=== PATIENT | female | born 1955 | race Caucasian/White ===

== ENCOUNTER 2017-12-19 09:00 | Inpatient (IN) | payer MEDICARE ==
[~2017-12-19] VITALS: Ht 167.6 cm; Wt 113.1 kg
[2017-12-19 10:07] VITALS: BP 119/50
[2017-12-19 10:29] LABS: BASOPHILS % (AUTO) 1.1 % (0.0-5.0); EOSINOPHILS % (AUTO) 2.4 % (0.0-8.0); HEMATOCRIT 39.5 % (36-48); LYMPHOCYTES % (AUTO) 19.5 % (21.0-51.0); MEAN CORPUSCULAR HEMOGLOBIN 29.8 pg (27.0-33.0); MEAN CORPUSCULAR HGB CONC 32.5 g/dL (32.0-36.0); MEAN CORPUSCULAR VOLUME 91.8 fL (79-99); MONOCYTES % (AUTO) 6.6 % (3.0-13.0); NEUTROPHILS % (AUTO) 70.4 % (40.0-77.0); NUCLEATED RED BLOOD CELLS 0.1 % (0.0-0.19); PLATELET COUNT (AUTO) 216 K/uL (130-400); RED BLOOD CELL COUNT(AUTO) 4.31 MIL/uL (4.00-5.50); RED CELL DISTRIBUTION WIDTH 16.2 % (11.0-15.5)
[2017-12-19 10:40] LABS: CREATININE 4.5 mg/dL (0.5-1.5); POTASSIUM 4.9 mmol/L (3.5-5.1)
[2017-12-19 10:54] LABS: PARTIAL THROMBOPLASTIN TIME 26.7 SEC (26.3-35.5); PROTHROMBIN TIME 10.5 SEC (9.6-11.6)
[2017-12-19] MEDS ORDERED: ASPI-1181 PO (10:56)
[2017-12-19] MEDS ORDERED: INSU100I3 SQ (10:56)
[2017-12-19] MEDS ORDERED: INSU100V12 SQ (10:56)
[2017-12-19] MEDS ORDERED: LISI-613 PO (10:56)
[2017-12-19] MEDS ORDERED: BRINOS OD (10:56)
[2017-12-19] MEDS ORDERED: LEVO150T11 PO (10:56)
[2017-12-19] MEDS ORDERED: SEVE800T7 PO (10:56)
[2017-12-19] MEDS ORDERED: CARV25TA PO (10:56)
[2017-12-19] MEDS ORDERED: LEVO175T9 PO (10:56)
[2017-12-19] MEDS ORDERED: CALC-1093 PO (10:56)
[2017-12-19] MEDS ORDERED: BRIM155OS OD (10:56)
[2017-12-19] MEDS ORDERED: TRAV2.5D OD (10:56)
[2017-12-19] MEDS ORDERED: FOLI1TAB61 PO (10:56)
[2017-12-21] VITALS (11 sets, daily range): BP systolic 103–157; BP diastolic 33–64
[2017-12-21] MEDS ORDERED: SODIUM CHLORIDE 0.9% 1000ML 1,000 ML IV ONE (06:23)
[2017-12-21] MEDS ORDERED: NITROGLYCERIN 5 MG/ML 10 ML VIAL IV ONE (08:51)
[2017-12-21] MEDS ORDERED: HEPARIN SODIUM 1000UNIT/ML 10ML VIAL ONE (08:51)
[2017-12-21] MEDS ORDERED: BIVALIRUDIN 250 MG/VIAL IV ONE (08:51)
[2017-12-21] MEDS ORDERED: IOPAMIDOL-370 100 ML VIAL IV ONE ×2 (08:52→09:42)
[2017-12-21] MEDS ORDERED: ISOVUE-370 50ML VIAL IV ONE (08:52)
[2017-12-21] MEDS ORDERED: LIDOCAINE HCL 2% 20ML ONE (08:52)
[2017-12-21] MEDS ORDERED: MIDAZOLAM HCL 1 MG/ML 2ML VIAL ONE (09:13)
[2017-12-21] MEDS ORDERED: FENTANYL CITRATE PF 50 MCG/1 ML 2ML VIAL ONE (09:13)
[2017-12-21] MEDS ORDERED: GLUCAGON 1MG KIT 1 MG ML IM PRN (10:30)
[2017-12-21] MEDS ORDERED: ACETAMINOPHEN-CODEINE 300/30MG TAB PO PRN (10:30)
[2017-12-21] MEDS ORDERED: NITROGLYCERIN 0.4 MG SL TAB SL PRN (10:30)
[2017-12-21] MEDS ORDERED: DEXTROSE 50%-WATER 50 ML DISP.SYRIN IV PRN (10:30)
[2017-12-21] MEDS: INSULIN HUMULIN R 100 UNIT/ML 3ML SQ SCH ×3 (11:30→20:33)
[2017-12-21] MEDS: NITROGLYCERIN 1GM/1 INCH PACKET TD SCH ×3 (12:23→23:47)
[2017-12-21 15:28] LABS: CHOLESTEROL 94 mg/dL (<200); HDL CHOLESTEROL 41 mg/dL (35-85); LDL DIRECT 33 mg/dL (0-99); TRIGLYCERIDES 183 mg/dL (30-200)
[2017-12-21] MEDS ORDERED: ASPIRIN 81 MG EC TAB PO SCH (21:00)
[2017-12-21] MEDS ORDERED: CARVEDILOL 25 MG TABLET PO SCH (21:00)
[2017-12-21] MEDS ORDERED: LISINOPRIL 20 MG TABLET PO SCH (21:00)
[2017-12-22] VITALS (16 sets, daily range): BP systolic 90–161; BP diastolic 40–96
[2017-12-22] MEDS: NITROGLYCERIN 1GM/1 INCH PACKET TD SCH (04:30)
[2017-12-22] MEDS ORDERED: CEFUROXIME SODIUM 1.5 GM VIAL IVP SCH (06:00)
[2017-12-22] MEDS ORDERED: LEVOTHYROXINE SODIUM 175 MCG PO SCH (06:30)
[2017-12-22] MEDS ORDERED: LEVOTHYROXINE 150 MCG TABLET PO SCH ×2 (06:30→07:37)
[2017-12-22] MEDS ORDERED: LEVOTHYROXINE 25 MCG TABLET PO SCH (06:30)
[2017-12-22] MEDS ORDERED: CEFUROXIME 1.5GM+NS 100ML 100 ML IV SCH (07:00)
[2017-12-22] MEDS ORDERED: PHARMACY COMMUNICATION MISC SCH (07:30)
[2017-12-22] MEDS: INSULIN HUMULIN R 100 UNIT/ML 3ML SQ SCH (07:30)
[2017-12-22] MEDS ORDERED: PAPAVERINE HCL 30 MG/ML 2ML VIAL ONE (07:42)
[2017-12-22] MEDS ORDERED: OCTYL 2-CYANOACRYLATE 1 EACH TP ONE (07:42)
[2017-12-22] MEDS ORDERED: BACITRACIN 50,000 UNIT VIAL ONE (07:43)
[2017-12-22] MEDS ORDERED: SEVELAMER HCL 800 MG TABLET PO SCH (08:00)
[2017-12-22] MEDS ORDERED: [UNRECOGNIZED DRUG - OTHER] PO SCH (09:00)
[2017-12-22] MEDS ORDERED: BRIMONIDINE TARTRATE OD SCH (09:00)
[2017-12-22] MEDS ORDERED: FOLIC ACID/VITAMIN B COMP W-C 1 MG CAPSULE PO SCH (09:00)
[2017-12-22] MEDS ORDERED: CALCIUM CARBONATE PO SCH (09:00)
[2017-12-22] MEDS ORDERED: SODIUM CHLORIDE 0.9% 10 ML VIAL ONE (09:00)
[2017-12-22] MEDS ORDERED: ESMOLOL HCL 10 MG/ML 10 ML VIAL ONE ×2 (09:43→12:00)
[2017-12-22] MEDS ORDERED: NITROGLYCERIN 50 MG/D5% WATER 1 BOT ONE (09:43)
[2017-12-22] MEDS ORDERED: EPINEPHRINE 1 MG/ML 30ML VIAL IJ ONE (09:46)
[2017-12-22] MEDS ORDERED: CEFUROXIME SODIUM 1.5 GM VIAL ONE (11:24)
[2017-12-22] MEDS ORDERED: ROCURONIUM BROMIDE 10MG/1ML 5ML VL ONE (12:00)
[2017-12-22] MEDS ORDERED: LIDOCAINE PF 2% 5ML ABBOJECT ONE (12:00)
[2017-12-22] MEDS ORDERED: EPINEPHRINE 1 MG/ML AMPULE ONE (12:00)
[2017-12-22] MEDS ORDERED: GLYCOPYRROLATE 0.2 MG/ML 5 ML VIAL ONE (12:00)
[2017-12-22] MEDS ORDERED: PROTAMINE SULFATE 10 MG/ML 25ML VIAL IV ONE (12:00)
[2017-12-22] MEDS ORDERED: HEPARIN SODIUM 1000UNIT/ML 10ML VIAL ONE ×2 (12:00→13:38)
[2017-12-22] MEDS ORDERED: MILRINONE-D5W 20 MG/100 ML 0 ML IV ONE (12:00)
[2017-12-22] MEDS ORDERED: KETAMINE 50MG/ML SYRINGE 50 MG/ML DISP.SYRIN IV ONE (12:01)
[2017-12-22] MEDS ORDERED: MIDAZOLAM HCL 1 MG/ML 5ML VIAL ONE (12:01)
[2017-12-22] MEDS ORDERED: NOREPINEPHRINE BITARTRATE 1 MG/1 ML ML IV ONE (12:01)
[2017-12-22] MEDS ORDERED: AMINOCAPROIC ACID 250 MG/ML 20 ML VIAL IV ONE (12:01)
[2017-12-22] MEDS ORDERED: PROPOFOL 10 MG/ML 20ML VIAL IV ONE (12:01)
[2017-12-22] MEDS ORDERED: FENTANYL CITRATE PF 50 MCG/1 ML 5ML AMP IV ONE (12:04)
[2017-12-22 13:25] LABS: ABG HCO3 24.3 mmol/L (21.0-28.0); ABG OXYGEN SATURATION 99.4 % (95.0-99.0); ABG PCO2 34 mmHg (32-45)
[2017-12-22] MEDS ORDERED: THROMBIN-JMI 5000 UNIT/VIAL TP ONE (13:38)
[2017-12-22 14:43] LABS: ABG HCO3 21.2 mmol/L (21.0-28.0); ABG OXYGEN SATURATION 99.1 % (95.0-99.0); ABG PCO2 31 mmHg (32-45)
[2017-12-22] MEDS ORDERED: SODIUM BICARB 50MEQ 50ML VIAL ONE ×4 (15:09→23:26)
[2017-12-22] MEDS ORDERED: SODIUM CHLORIDE 0.9% 500ML 500 ML IV SCH (15:46)
[2017-12-22 16:00] LABS: ABG BASE EXCESS -2.5 mmol/L (-2.0-3.0); ABG HCO3 21.1 mmol/L (21.0-28.0); ABG OXYGEN SATURATION 99.1 % (95.0-99.0); ABG PCO2 31 mmHg (32-45)
[2017-12-22] MEDS ORDERED: POTASSIUM PHOS 15 mMOL+NS250ML 250 ML IV PRN (16:00)
[2017-12-22] MEDS ORDERED: ACETAMINOPHEN 325 MG TAB PO PRN (16:00)
[2017-12-22] MEDS ORDERED: MORPHINE SULFATE 2 MG/ML 1ML SYG IV PRN (16:00)
[2017-12-22] MEDS ORDERED: ACETAMINOPHEN 650 MG SUPPOSITORY RC PRN (16:00)
[2017-12-22] MEDS ORDERED: DEXTROSE 50%-WATER 50 ML DISP.SYRIN IV PRN (16:00)
[2017-12-22] MEDS ORDERED: SODIUM CHLORIDE 0.9% 1000ML 1,000 ML IV SCH (16:00)
[2017-12-22] MEDS ORDERED: HYDROCODONE/ACETAMINOPHEN 5/325 MG TAB PO PRN (16:00)
[2017-12-22] MEDS ORDERED: POTASSIUM CHLORIDE 20MEQ/100ML 100 ML IV PRN (16:00)
[2017-12-22] MEDS ORDERED: SODIUM CHLORIDE 0.9% 10 ML VIAL IVP PRN (16:00)
[2017-12-22] MEDS ORDERED: MAGNESIUM 2GM PREMIX 50ML 50 ML IV PRN (16:00)
[2017-12-22] MEDS ORDERED: NITROGLYCERIN 50 MG/D5% WATER 250 BOT IV SCH (16:00)
[2017-12-22] MEDS ORDERED: INSULIN REGULAR, HUMAN 3ML 100 UNIT in SODIUM CHLORIDE 0.9% 99 ML IV SCH ×2 (16:00)
[2017-12-22] MEDS ORDERED: AMINOCAPROIC ACID 15,000 MG in SODIUM CHLORIDE 0.9% 250 ML IV SCH (16:00)
[2017-12-22] MEDS ORDERED: ALBUMIN (HUMAN) 5% 250 ML IV PRN (16:00)
[2017-12-22] MEDS ORDERED: GLUCAGON 1MG KIT 1 MG ML IM PRN (16:00)
[2017-12-22] MEDS ORDERED: SODIUM CHLORIDE 0.9% 250 ML IV PRN (16:00)
[2017-12-22] MEDS ORDERED: EPINEPHRINE 2 MG in SODIUM CHLORIDE 0.9% 250 ML IV PRN (16:00)
[2017-12-22] MEDS ORDERED: CALCIUM GLUCONATE 1 GM in SODIUM CHLORIDE 0.9% 50 ML IV PRN (16:00)
[2017-12-22] MEDS ORDERED: ONDANSETRON HCL 4 MG/2 ML VIAL IV PRN (16:00)
[2017-12-22] MEDS ORDERED: PROPOFOL 1000 MG/100 ML 100 ML IV PRN (16:00)
[2017-12-22] MEDS ORDERED: NICARDIPINE HCL 100 MG in SODIUM CHLORIDE 0.9% 60 ML IV PRN (16:00)
[2017-12-22] MEDS: MORPHINE SULFATE 4 MG/1ML SYG IV PRN ×2 (16:49→19:44)
[2017-12-22] MEDS: NOREPINEPHRINE 4MG/NS 250ML 250 ML IV PRN ×2 (17:04→21:39)
[2017-12-22 17:14] LABS: ABG BASE EXCESS -3.5 mmol/L (-2.0-3.0); ABG HCO3 19.6 mmol/L (21.0-28.0); ABG OXYGEN SATURATION 99.2 % (95.0-99.0); ABG PCO2 30 mmHg (32-45)
[2017-12-22 17:18] LABS: HEMATOCRIT 33.1 % (36-48); MEAN CORPUSCULAR HEMOGLOBIN 31.1 pg (27.0-33.0); MEAN CORPUSCULAR HGB CONC 33.8 g/dL (32.0-36.0); MEAN CORPUSCULAR VOLUME 91.8 fL (79-99); PLATELET COUNT (AUTO) 175 K/uL (130-400); RED BLOOD CELL COUNT(AUTO) 3.61 MIL/uL (4.00-5.50); RED CELL DISTRIBUTION WIDTH 16.3 % (11.0-15.5); WHITE BLOOD COUNT (AUTO) 17.1 K/uL (4.8-10.8)
[2017-12-22 17:39] LABS: CREATININE 3.6 mg/dL (0.5-1.5); MAGNESIUM 1.8 mg/dL (1.80-2.40); PHOSPHORUS 4.7 mg/dL (2.5-4.9); POTASSIUM 4.6 mmol/L (3.5-5.1)
[2017-12-22 19:42] LABS: ABG BASE EXCESS -5.2 mmol/L (-2.0-3.0); ABG HCO3 18.1 mmol/L (21.0-28.0); ABG OXYGEN SATURATION 98.3 % (95.0-99.0); ABG PCO2 29 mmHg (32-45)
[2017-12-22] MEDS: SODIUM BICARB 8.4% 50ML SYRINGE IV PRN ×3 (19:44→23:34)
[2017-12-22] MEDS ORDERED: TRAVOPROST OD SCH (21:00)
[2017-12-22 21:11] LABS: ABG BASE EXCESS 2.4 mmol/L (-2.0-3.0); ABG HCO3 25.9 mmol/L (21.0-28.0); ABG OXYGEN SATURATION 98.4 % (95.0-99.0); ABG PCO2 36 mmHg (32-45)
[2017-12-22 23:26] LABS: ABG BASE EXCESS -1.7 mmol/L (-2.0-3.0); ABG OXYGEN SATURATION 98.6 % (95.0-99.0); ABG PCO2 34 mmHg (32-45)
[2017-12-22] MEDS: CEFUROXIME SODIUM 1.5 GM VIAL IVP SCH (23:34)
[2017-12-23] VITALS (34 sets, daily range): BP systolic 72–155; BP diastolic 35–74
[2017-12-23] MEDS ORDERED: CEFUROXIME 1.5GM+NS 100ML 100 ML IV SCH
[2017-12-23 00:53] LABS: ABG BASE EXCESS 0.7 mmol/L (-2.0-3.0); ABG HCO3 25.3 mmol/L (21.0-28.0); ABG OXYGEN SATURATION 99.2 % (95.0-99.0); ABG PCO2 40 mmHg (32-45)
[2017-12-23] MEDS: HYDROCODONE/ACETAMINOPHEN 5/325 MG TAB PO PRN ×5 (04:09→20:41)
[2017-12-23 04:41] LABS: HEMATOCRIT 33.4 % (36-48); MEAN CORPUSCULAR HGB CONC 32.3 g/dL (32.0-36.0); MEAN CORPUSCULAR VOLUME 92.9 fL (79-99); NUCLEATED RED BLOOD CELLS 0.1 % (0.0-0.19); PLATELET COUNT (AUTO) 193 K/uL (130-400); RED CELL DISTRIBUTION WIDTH 16.6 % (11.0-15.5); WHITE BLOOD COUNT (AUTO) 17.5 K/uL (4.8-10.8)
[2017-12-23 04:47] LABS: MAGNESIUM 2.7 mg/dL (1.80-2.40); PHOSPHORUS 6.8 mg/dL (2.5-4.9); POTASSIUM 4.1 mmol/L (3.5-5.1)
[2017-12-23] MEDS ORDERED: LEVOTHYROXINE 150 MCG TABLET PO SCH ×2 (06:30→07:00)
[2017-12-23] MEDS ORDERED: LEVOTHYROXINE 25 MCG TABLET PO SCH (06:30)
[2017-12-23] MEDS ORDERED: LEVOTHYROXINE 75 MCG TABLET PO SCH (07:00)
[2017-12-23] MEDS ORDERED: LEVOTHYROXINE 100 MCG TABLET PO SCH (07:00)
[2017-12-23] MEDS ORDERED: PHARMACY COMMUNICATION MISC SCH (08:00)
[2017-12-23] MEDS: SEVELAMER HCL 800 MG TABLET PO SCH ×3 (08:25→16:21)
[2017-12-23] MEDS: FOLIC ACID/VITAMIN B COMP W-C 1 MG CAPSULE PO SCH (08:25)
[2017-12-23] MEDS: PANTOPRAZOLE 40 MG/VIAL IV SCH (08:27)
[2017-12-23] MEDS: ASPIRIN 81MG TAB.CHEW PO SCH (08:29)
[2017-12-23] MEDS: ALPHAGAN OD SCH ×2 (08:30→19:54)
[2017-12-23] MEDS: BRINZOLAMIDE PO SCH ×2 (08:31→19:54)
[2017-12-23] MEDS: LEVOTHYROXINE 25 MCG TABLET PO SCH (08:44)
[2017-12-23] MEDS: LEVOTHYROXINE 150 MCG TABLET PO SCH (08:44)
[2017-12-23] MEDS ORDERED: BRINZOLAMIDE 1% 10ML DROPS.SUSP OD SCH (09:00)
[2017-12-23] MEDS: HONEY 1 APPL/ML TUBE TP SCH (10:19)
[2017-12-23] MEDS ORDERED: ALBUMIN (HUMAN) 25% 50 ML IV SCH (11:00)
[2017-12-23] MEDS: CEFUROXIME SODIUM 1.5 GM VIAL IVP SCH ×2 (11:20→23:20)
[2017-12-23 16:50] LABS: ABG BASE EXCESS -2.3 mmol/L (-2.0-3.0); ABG HCO3 22.3 mmol/L (21.0-28.0); ABG OXYGEN SATURATION 96.7 % (95.0-99.0); ABG PCO2 37 mmHg (32-45)
[2017-12-23] MEDS ORDERED: SODIUM BICARB 8.4% 50ML SYRINGE IVP SCH (16:57)
[2017-12-23] MEDS ORDERED: CALCIUM GLUCONATE 1 GM in SODIUM CHLORIDE 0.9% 50 ML IV STA (16:57)
[2017-12-23] MEDS ORDERED: SODIUM BICARB 50MEQ 50ML VIAL ONE (17:05)
[2017-12-23 17:09] LABS: HEMATOCRIT 30.5 % (36-48); MEAN CORPUSCULAR HEMOGLOBIN 30.2 pg (27.0-33.0); MEAN CORPUSCULAR HGB CONC 32.3 g/dL (32.0-36.0); MEAN CORPUSCULAR VOLUME 93.6 fL (79-99); NUCLEATED RED BLOOD CELLS 0.1 % (0.0-0.19); PLATELET COUNT (AUTO) 177 K/uL (130-400); RED BLOOD CELL COUNT(AUTO) 3.26 MIL/uL (4.00-5.50); RED CELL DISTRIBUTION WIDTH 17.5 % (11.0-15.5); WHITE BLOOD COUNT (AUTO) 18.5 K/uL (4.8-10.8)
[2017-12-23] MEDS ORDERED: ALBUMIN (HUMAN) 5% 250 ML IV SCH (17:09)
[2017-12-23] MEDS ORDERED: CALCIUM GLUCONATE 1 GM in SODIUM CHLORIDE 0.9% 50 ML IV SCH (17:12)
[2017-12-23 17:18] LABS: CREATININE 5.8 mg/dL (0.5-1.5)
[2017-12-23] MEDS: NOREPINEPHRINE 4MG/NS 250ML 250 ML IV PRN (18:08)
[2017-12-23] MEDS: ATORVASTATIN CALCIUM 40 MG TABLET PO SCH (20:26)
[2017-12-23] MEDS ORDERED: EPINEPHRINE 8 MG in SODIUM CHLORIDE 0.9% 250 ML IV PRN (20:30)
[2017-12-23] MEDS ORDERED: ONDANSETRON HCL MDV 20ML 2 MG/ML VIAL ONE ×2 (20:40→21:08)
[2017-12-24] VITALS (12 sets, daily range): BP systolic 100–154; BP diastolic 34–71
[2017-12-24] MEDS: HYDROCODONE/ACETAMINOPHEN 5/325 MG TAB PO PRN (04:09)
[2017-12-24 04:12] LABS: HEMATOCRIT 27.8 % (36-48); MEAN CORPUSCULAR HGB CONC 33.2 g/dL (32.0-36.0); MEAN CORPUSCULAR VOLUME 93.2 fL (79-99); NUCLEATED RED BLOOD CELLS 0.1 % (0.0-0.19); PLATELET COUNT (AUTO) 148 K/uL (130-400); RED BLOOD CELL COUNT(AUTO) 2.98 MIL/uL (4.00-5.50); RED CELL DISTRIBUTION WIDTH 17.1 % (11.0-15.5)
[2017-12-24 04:21] LABS: CREATININE 6.5 mg/dL (0.5-1.5); POTASSIUM 4.1 mmol/L (3.5-5.1)
[2017-12-24] MEDS: NOREPINEPHRINE 4MG/NS 250ML 250 ML IV PRN (04:26)
[2017-12-24] MEDS: LEVOTHYROXINE 25 MCG TABLET PO SCH (05:49)
[2017-12-24] MEDS: LEVOTHYROXINE 150 MCG TABLET PO SCH (05:49)
[2017-12-24] MEDS: INSULIN HUMULIN R 100 UNIT/ML 3ML SQ SCH ×4 (07:30→22:02)
[2017-12-24] MEDS: SEVELAMER HCL 800 MG TABLET PO SCH ×3 (08:00→16:44)
[2017-12-24] MEDS: ALPHAGAN OD SCH ×2 (09:00→21:06)
[2017-12-24] MEDS: BRINZOLAMIDE PO SCH ×2 (09:00→21:07)
[2017-12-24] MEDS: HONEY 1 APPL/ML TUBE TP SCH (09:00)
[2017-12-24] MEDS: FOLIC ACID/VITAMIN B COMP W-C 1 MG CAPSULE PO SCH (09:55)
[2017-12-24] MEDS: ASPIRIN 81MG TAB.CHEW PO SCH (09:55)
[2017-12-24] MEDS: PANTOPRAZOLE 40 MG/VIAL IV SCH (09:55)
[2017-12-24] MEDS ORDERED: ALBUMIN (HUMAN) 5% 250 ML IV SCH (11:15)
[2017-12-24] MEDS: MIDODRINE HCL 5 MG TABLET PO SCH ×2 (14:43→20:55)
[2017-12-24] MEDS: ATORVASTATIN CALCIUM 40 MG TABLET PO SCH (20:55)
[2017-12-25] VITALS (21 sets, daily range): BP systolic 94–158; BP diastolic 31–83
[2017-12-25 04:05] LABS: BASOPHILS % (AUTO) 0.3 % (0.0-5.0); EOSINOPHILS % (AUTO) 2.3 % (0.0-8.0); LYMPHOCYTES % (AUTO) 9.3 % (21.0-51.0); MEAN CORPUSCULAR HGB CONC 32.1 g/dL (32.0-36.0); MEAN CORPUSCULAR VOLUME 93.4 fL (79-99); MONOCYTES % (AUTO) 7.3 % (3.0-13.0); NEUTROPHILS % (AUTO) 80.8 % (40.0-77.0); PLATELET COUNT (AUTO) 117 K/uL (130-400); RED BLOOD CELL COUNT(AUTO) 2.67 MIL/uL (4.00-5.50); RED CELL DISTRIBUTION WIDTH 17.1 % (11.0-15.5); WHITE BLOOD COUNT (AUTO) 11.3 K/uL (4.8-10.8)
[2017-12-25 04:21] LABS: ALBUMIN 2.4 g/dL (3.5-5.0); BILIRUBIN,DIRECT 0.1 mg/dL (0.0-0.3); BILIRUBIN,TOTAL 0.4 mg/dL (0.2-1.0); CREATININE 7.5 mg/dL (0.5-1.5); MAGNESIUM 2.6 mg/dL (1.80-2.40); PHOSPHORUS 7.6 mg/dL (2.5-4.9); POTASSIUM 4.1 mmol/L (3.5-5.1)
[2017-12-25] MEDS: LEVOTHYROXINE 25 MCG TABLET PO SCH (05:45)
[2017-12-25] MEDS: LEVOTHYROXINE 150 MCG TABLET PO SCH (05:45)
[2017-12-25] MEDS: INSULIN HUMULIN R 100 UNIT/ML 3ML SQ SCH ×4 (05:50→20:58)
[2017-12-25] MEDS ORDERED: ACETAMINOPHEN 325 MG TAB PO PRN (07:15)
[2017-12-25] MEDS: MIDODRINE HCL 5 MG TABLET PO SCH ×3 (08:42→20:53)
[2017-12-25] MEDS: FOLIC ACID/VITAMIN B COMP W-C 1 MG CAPSULE PO SCH (08:42)
[2017-12-25] MEDS: BRINZOLAMIDE PO SCH ×2 (08:43→20:53)
[2017-12-25] MEDS: ASPIRIN 81MG TAB.CHEW PO SCH (08:43)
[2017-12-25] MEDS: ALPHAGAN OD SCH ×2 (08:43→20:53)
[2017-12-25] MEDS: SEVELAMER HCL 800 MG TABLET PO SCH ×3 (08:43→16:45)
[2017-12-25] MEDS: INSULIN GLARGINE 100 UNITS/ML 10 ML VIAL SQ SCH ×2 (08:46→16:44)
[2017-12-25] MEDS: HEPARIN SODIUM 5000UNIT/ML 1ML VIAL SQ SCH ×2 (08:47→20:57)
[2017-12-25] MEDS: HONEY 1 APPL/ML TUBE TP SCH (08:57)
[2017-12-25] MEDS: PANTOPRAZOLE SODIUM 40 MG TABLET.DR PO SCH (08:58)
[2017-12-25] MEDS: EPOETIN ALFA 10,000 UNIT/ML VIAL SQ SCH (14:07)
[2017-12-25] MEDS: FERROUS SULFATE 325 MG TABLET.DR PO SCH (16:45)
[2017-12-25] MEDS: ATORVASTATIN CALCIUM 40 MG TABLET PO SCH (20:53)
[2017-12-26 04:00] VITALS: BP 122/60
[2017-12-26 04:09] LABS: MEAN CORPUSCULAR HEMOGLOBIN 31.9 pg (27.0-33.0); MEAN CORPUSCULAR HGB CONC 34.9 g/dL (32.0-36.0); MEAN CORPUSCULAR VOLUME 91.6 fL (79-99); PLATELET COUNT (AUTO) 119 K/uL (130-400); RED BLOOD CELL COUNT(AUTO) 2.83 MIL/uL (4.00-5.50); RED CELL DISTRIBUTION WIDTH 16.3 % (11.0-15.5); WHITE BLOOD COUNT (AUTO) 8.7 K/uL (4.8-10.8)
[2017-12-26] MEDS: LEVOTHYROXINE 150 MCG TABLET PO SCH (06:46)
[2017-12-26] MEDS: HYDROCODONE/ACETAMINOPHEN 5/325 MG TAB PO PRN (06:46)
[2017-12-26] MEDS: PANTOPRAZOLE SODIUM 40 MG TABLET.DR PO SCH (06:46)
[2017-12-26 07:00] VITALS: BP 132/67
[2017-12-26] MEDS: INSULIN HUMULIN R 100 UNIT/ML 3ML SQ SCH ×4 (07:03→20:41)
[2017-12-26] MEDS: INSULIN GLARGINE 100 UNITS/ML 10 ML VIAL SQ SCH ×2 (07:04→17:31)
[2017-12-26] MEDS: SEVELAMER HCL 800 MG TABLET PO SCH ×3 (08:44→17:31)
[2017-12-26] MEDS: FERROUS SULFATE 325 MG TABLET.DR PO SCH (08:44)
[2017-12-26] MEDS: MIDODRINE HCL 5 MG TABLET PO SCH ×3 (08:44→19:46)
[2017-12-26] MEDS: FOLIC ACID/VITAMIN B COMP W-C 1 MG CAPSULE PO SCH (08:44)
[2017-12-26] MEDS: ASPIRIN 81MG TAB.CHEW PO SCH (08:44)
[2017-12-26] MEDS: HEPARIN SODIUM 5000UNIT/ML 1ML VIAL SQ SCH ×2 (08:45→19:47)
[2017-12-26] MEDS: BRINZOLAMIDE PO SCH ×2 (08:45→19:46)
[2017-12-26] MEDS: ALPHAGAN OD SCH ×2 (08:46→19:46)
[2017-12-26] MEDS: HONEY 1 APPL/ML TUBE TP SCH (08:47)
[2017-12-26 11:00] VITALS: BP 131/85
[2017-12-26] MEDS ORDERED: ONDANSETRON HCL MDV 20ML 2 MG/ML VIAL IV PRN (12:06)
[2017-12-26] MEDS: ACETYLCYSTEINE 20% 200MG/ML 4ML VIAL IH SCH ×2 (14:09→21:49)
[2017-12-26] MEDS: IPRATROPIUM 0.5 MG/2.5 ML INH IH SCH ×2 (14:09→21:49)
[2017-12-26] MEDS: EPOETIN ALFA 10,000 UNIT/ML VIAL SQ SCH (15:00)
[2017-12-26] MEDS: CARVEDILOL 3.125 MG TABLET PO SCH ×2 (15:38→19:47)
[2017-12-26 16:00] VITALS: BP 160/76
[2017-12-26 19:28] VITALS: BP 148/37
[2017-12-26] MEDS: ATORVASTATIN CALCIUM 40 MG TABLET PO SCH (19:46)
[2017-12-26 23:13] VITALS: BP 101/65
[2017-12-27 03:34] VITALS: BP 110/38
[2017-12-27 04:08] LABS: CREATININE 6.5 mg/dL (0.5-1.5); POTASSIUM 3.4 mmol/L (3.5-5.1)
[2017-12-27] MEDS: LEVOTHYROXINE 25 MCG TABLET PO SCH (05:32)
[2017-12-27] MEDS: LEVOTHYROXINE 150 MCG TABLET PO SCH (05:32)
[2017-12-27] MEDS: PANTOPRAZOLE SODIUM 40 MG TABLET.DR PO SCH (05:33)
[2017-12-27] MEDS: INSULIN HUMULIN R 100 UNIT/ML 3ML SQ SCH ×3 (05:33→16:30)
[2017-12-27] MEDS: INSULIN GLARGINE 100 UNITS/ML 10 ML VIAL SQ SCH (05:35)
[2017-12-27] MEDS: IPRATROPIUM 0.5 MG/2.5 ML INH IH SCH ×2 (05:59→13:47)
[2017-12-27] MEDS: ACETYLCYSTEINE 20% 200MG/ML 4ML VIAL IH SCH ×2 (05:59→13:47)
[2017-12-27 08:02] VITALS: BP 143/70
[2017-12-27] MEDS: MIDODRINE HCL 5 MG TABLET PO SCH ×2 (08:24→13:08)
[2017-12-27] MEDS: SEVELAMER HCL 800 MG TABLET PO SCH ×2 (08:25→12:30)
[2017-12-27] MEDS: CARVEDILOL 3.125 MG TABLET PO SCH (08:25)
[2017-12-27] MEDS: ALPHAGAN OD SCH (08:25)
[2017-12-27] MEDS: ASPIRIN 81MG TAB.CHEW PO SCH (08:25)
[2017-12-27] MEDS: BRINZOLAMIDE PO SCH (08:25)
[2017-12-27] MEDS: FOLIC ACID/VITAMIN B COMP W-C 1 MG CAPSULE PO SCH (08:25)
[2017-12-27] MEDS: HONEY 1 APPL/ML TUBE TP SCH (08:31)
[2017-12-27] MEDS: HEPARIN SODIUM 5000UNIT/ML 1ML VIAL SQ SCH (08:31)
[2017-12-27 10:22] LABS: HEPATITIS Bs ANTIGEN SCREEN P Negative (Negative)
[2017-12-27 11:07] VITALS: BP 171/78
[2017-12-27] MEDS: EPOETIN ALFA 10,000 UNIT/ML VIAL SQ SCH (13:09)
[2017-12-27] MEDS: HYDROCODONE/ACETAMINOPHEN 5/325 MG TAB PO PRN (15:52)
[2017-12-27 16:38] VITALS: BP 148/77
[2017-12-27] MEDS ORDERED: ATORVASTATIN CALCIUM 20 MG TABLET PO SCH (21:00)
== END 2017-12-27 16:50 | DRG 233 ==
LOC: DAHIP 12-21 05:59 → EDSTATUS 12-21 09:00 → 2DH 12-21 10:33 → 2CV 12-22 12:57 → 2BH 12-23 06:11 → 2AH 12-26 07:17
PROVIDERS: ADMIT Internal Medicine; ATTEND Internal Medicine
PROC: 5A1D70Z Performance of Urinary Filtration, Intermittent, Less than 6 Hours Per Day (ICD-10-PCS; 2017-12-21)
PROC: 30233N1 Transfusion of Nonautologous Red Blood Cells into Peripheral Vein, Percutaneous Approach (ICD-10-PCS; 2017-12-22)
PROC: 5A1D70Z Performance of Urinary Filtration, Intermittent, Less than 6 Hours Per Day (ICD-10-PCS; 2017-12-22)
PROC: 4A023N7 Measurement of Cardiac Sampling and Pressure, Left Heart, Percutaneous Approach (ICD-10-PCS; 2017-12-22)
PROC: B2111ZZ Fluoroscopy of Multiple Coronary Arteries using Low Osmolar Contrast (ICD-10-PCS; 2017-12-22)
PROC: B2151ZZ Fluoroscopy of Left Heart using Low Osmolar Contrast (ICD-10-PCS; 2017-12-22)
PROC: B4101ZZ Fluoroscopy of Abdominal Aorta using Low Osmolar Contrast (ICD-10-PCS; 2017-12-22)
PROC: 021209W Bypass Coronary Artery, Three Arteries from Aorta with Autologous Venous Tissue, Open Approach (ICD-10-PCS; principal; 2017-12-22 12:54)
PROC: 02100Z9 Bypass Coronary Artery, One Artery from Left Internal Mammary, Open Approach (ICD-10-PCS; 2017-12-22 12:54)
PROC: 06BQ4ZZ Excision of Left Saphenous Vein, Percutaneous Endoscopic Approach (ICD-10-PCS; 2017-12-22 12:54)
PROC: 0JBQ0ZZ Excision of Right Foot Subcutaneous Tissue and Fascia, Open Approach (ICD-10-PCS; 2017-12-24)
PROC: 5A1D70Z Performance of Urinary Filtration, Intermittent, Less than 6 Hours Per Day (ICD-10-PCS; 2017-12-25)
PROC: 5A1D70Z Performance of Urinary Filtration, Intermittent, Less than 6 Hours Per Day (ICD-10-PCS; 2017-12-27)
DX: I25.10 Atherosclerotic heart disease of native coronary artery without angina pectoris (principal); N18.6 End stage renal disease; I13.2 Hypertensive heart and chronic kidney disease with heart failure and with stage 5 chronic kidney disease, or end stage renal disease; Z76.82 Awaiting organ transplant status; D69.6 Thrombocytopenia, unspecified; E11.21 Type 2 diabetes mellitus with diabetic nephropathy; E11.51 Type 2 diabetes mellitus with diabetic peripheral angiopathy without gangrene; I12.0 Hypertensive chronic kidney disease with stage 5 chronic kidney disease or end stage renal disease; E11.22 Type 2 diabetes mellitus with diabetic chronic kidney disease; D62 Acute posthemorrhagic anemia; B35.1 Tinea unguium; D50.0 Iron deficiency anemia secondary to blood loss (chronic); D63.8 Anemia in other chronic diseases classified elsewhere; E03.9 Hypothyroidism, unspecified; E11.621 Type 2 diabetes mellitus with foot ulcer; E11.65 Type 2 diabetes mellitus with hyperglycemia; E78.5 Hyperlipidemia, unspecified; I50.9 Heart failure, unspecified; J44.9 Chronic obstructive pulmonary disease, unspecified; L60.2 Onychogryphosis; L97.519 Non-pressure chronic ulcer of other part of right foot with unspecified severity; Z79.4 Long term (current) use of insulin; Z79.82 Long term (current) use of aspirin; Z79.899 Other long term (current) drug therapy; Z99.2 Dependence on renal dialysis; Z83.3 Family history of diabetes mellitus; Z82.49 Family history of ischemic heart disease and other diseases of the circulatory system
CPT/HCPCS: 36222; 36223; 36225; 36415; 36600; 71045; 73630; 75630; 80048; 80061; 80076; 82330; 82435; 82803; 82947; 82948; 83036; 83605; 83735; 84100; 84132; 84295; 85018; 85025; 85027; 85347; 85610; 85730; 86701; 86704; 86706; 86850; 86900; 86901; 86922; 87340; 87390; 87520; 90935; 93005; 93458; 94002; 94010; 94150; 94640; 94664; 97039; 99152; 99153; A4218; A4314; A4354; A4357; A4606; A7048; C1894; C9113; G0378; J0171; J0583; J0610; J0697; J0885; J1644; J1815; J2001; J2250; J2260; J2270; J2440; J2704; J2720; J3010; J3475; J3490; J7030; J7040; J7070; J7120; J7608; P9016; P9045; P9047; Q9967

== ENCOUNTER 2020-12-01 08:00 | Day surgery (SDC) | payer MEDICARE ==
[~2020-12-01] VITALS: Ht 167.6 cm; Wt 117.9 kg
[~2020-12-01 08:00] MED LIST: AEC81 PO; ATOR40TA69 PO; BRIM155OS OD; BRINOS OD; CYCL30DR OD; FERR325T22 PO; FOLI1 PO; FOLI1TAB61 PO; INSU100I24 SQ; INSU100I3 SQ; LEVO150T11 PO; PANT40TA54 PO; SENN-297 PO; SODIUM CHLORIDE 0.9% 1000ML 1,000 ML IV ONE; TIMO1DRO5 OD; VITA-164 PO; [UNRECOGNIZED DRUG - OTHER] PO
[2020-12-01 08:38] VITALS: BP 133/48
[2020-12-01 08:51] LABS: CREATININE 6.3 mg/dL (0.5-1.5); POTASSIUM 4.1 mmol/L (3.5-5.1)
[2020-12-01] MEDS ORDERED: PROPOFOL 10 MG/ML 20ML VIAL IV ONE (09:37)
[2020-12-01 09:50] VITALS: BP 114/35
[2020-12-01 09:55] VITALS: BP 127/38
[2020-12-01 10:00] VITALS: BP 121/39
[2020-12-01 10:05] VITALS: BP 126/45
[2020-12-01 10:10] VITALS: BP 128/44
== END 2020-12-01 10:30 | disposition home or self-care (01) ==
LOC: ENDO 08:00 → DAH 08:00 → ENDO 10:30
PROVIDERS: ATTEND Internal Medicine Gastroenterology
DX: Z12.11 Encounter for screening for malignant neoplasm of colon (principal); Z20.822 Contact with and (suspected) exposure to COVID-19; K21.9 Gastro-esophageal reflux disease without esophagitis; K22.8 Other specified diseases of esophagus; K29.70 Gastritis, unspecified, without bleeding; K25.9 Gastric ulcer, unspecified as acute or chronic, without hemorrhage or perforation; K63.89 Other specified diseases of intestine; N18.6 End stage renal disease; I25.2 Old myocardial infarction; Z88.8 Allergy status to other drugs, medicaments and biological substances; Z79.82 Long term (current) use of aspirin; Z79.899 Other long term (current) drug therapy; Z86.010 Personal history of colon polyps; Z98.890 Other specified postprocedural states; Z90.49 Acquired absence of other specified parts of digestive tract; E89.0 Postprocedural hypothyroidism; Z80.0 Family history of malignant neoplasm of digestive organs
CPT/HCPCS: 36415; 43239; 80048; 82948 ×2; 88305; 88342; 93005; A4215; A4216; A4221; A4222; A4223; A4606; A4620; A4657; A4663; C9803; G0105; J2704; J7030; U0003; G0121

== ENCOUNTER → 2021-08-17 | Outpatient (CLI) | payer MEDICARE ==
[~2021-08-17] MED LIST changes: +REGADENOSON 0.4 MG/5 ML PF SYG IVP SCH; -SODIUM CHLORIDE 0.9% 1000ML 1,000 ML IV ONE
== END | disposition home or self-care (01) ==
LOC: SHCH 08:30
PROVIDERS: ATTEND Internal Medicine Cardiovascular Disease
DX: I25.118 Atherosclerotic heart disease of native coronary artery with other forms of angina pectoris (principal); I51.7 Cardiomegaly; R94.39 Abnormal result of other cardiovascular function study
CPT/HCPCS: 78452; 93017; 96374; A9500 ×2; J2785

== ENCOUNTER 2021-10-25 08:23 | Inpatient (IN) | payer MEDICARE ==
[~2021-10-25] VITALS: Ht 167.6 cm; Wt 73.7 kg
[2021-10-25] VITALS (18 sets, daily range): BP systolic 100–130; BP diastolic 40–100
[~2021-10-25 08:23] MED LIST changes: -REGADENOSON 0.4 MG/5 ML PF SYG IVP SCH
[2021-10-25 09:04] LABS: BASOPHILS % (AUTO) 0.3 % (0.0-5.0); EOSINOPHILS % (AUTO) 3.1 % (0.0-8.0); HEMATOCRIT 32.5 % (36-48); LYMPHOCYTES % (AUTO) 7.7 % (21.0-51.0); MEAN CORPUSCULAR HEMOGLOBIN 29.1 pg (27.0-33.0); MEAN CORPUSCULAR VOLUME 90.8 fL (79-99); MONOCYTES % (AUTO) 4.3 % (3.0-13.0); NEUTROPHILS % (AUTO) 84.2 % (40.0-77.0); PLATELET COUNT (AUTO) 192 K/uL (130-400); RED BLOOD CELL COUNT(AUTO) 3.58 MIL/uL (4.00-5.50); RED CELL DISTRIBUTION WIDTH 13.2 % (11.0-15.5); WHITE BLOOD COUNT (AUTO) 14.8 K/uL (4.8-10.8)
[2021-10-25 09:22] LABS: ALBUMIN 3.3 g/dL (3.5-5.0); BILIRUBIN,TOTAL 0.4 mg/dL (0.2-1.0); POTASSIUM 5.2 mmol/L (3.5-5.1); TOTAL PROTEIN, SERUM 7.2 g/dL (6.0-8.3)
[2021-10-25 09:23] LABS: CREATININE 10.4 mg/dL (0.5-1.5)
[2021-10-25] MEDS ORDERED: MORPHINE 2 MG SYG IVP PRN (10:30)
[2021-10-25] MEDS ORDERED: ONDANSETRON 4MG INJ IVP PRN (10:30)
[2021-10-25] MEDS ORDERED: ACETAMINOPHEN 325 MG TAB PO PRN (10:30)
[2021-10-25] MEDS ORDERED: RANOLAZINE 500 MG TAB.SR.12H PO SCH (11:30)
[2021-10-25] MEDS: RANOLAZINE 500 MG TAB.SR.12H PO SCH (20:46)
[2021-10-25] MEDS: ATORVASTATIN 40 MG TABLET PO SCH (20:46)
[2021-10-25] MEDS: METOPROLOL TARTRATE 25 MG TAB PO SCH (20:47)
[2021-10-26] VITALS (7 sets, daily range): BP systolic 93–118; BP diastolic 30–73
[2021-10-26 03:27] LABS: BASOPHILS % (AUTO) 0.3 % (0.0-5.0); EOSINOPHILS % (AUTO) 3.5 % (0.0-8.0); HEMATOCRIT 29.8 % (36-48); LYMPHOCYTES % (AUTO) 14.4 % (21.0-51.0); MEAN CORPUSCULAR HEMOGLOBIN 28.6 pg (27.0-33.0); MEAN CORPUSCULAR HGB CONC 31.9 g/dL (32.0-36.0); MEAN CORPUSCULAR VOLUME 89.8 fL (79-99); MONOCYTES % (AUTO) 7.5 % (3.0-13.0); PLATELET COUNT (AUTO) 167 K/uL (130-400); RED BLOOD CELL COUNT(AUTO) 3.32 MIL/uL (4.00-5.50); RED CELL DISTRIBUTION WIDTH 13.2 % (11.0-15.5)
[2021-10-26 03:44] LABS: CREATININE 7.1 mg/dL (0.5-1.5); PHOSPHORUS 5.3 mg/dL (2.5-4.9); POTASSIUM 4.4 mmol/L (3.5-5.1)
[2021-10-26 06:12] LABS: HEPATITIS B SURFACE ANTIGEN SEE SEPARATE REPORT (Negative)
[2021-10-26] MEDS ORDERED: ISOSORBIDE MONO 30MG SR TAB PO SCH (09:00)
[2021-10-26] MEDS: METOPROLOL TARTRATE 25 MG TAB PO SCH ×2 (10:06→21:03)
[2021-10-26] MEDS: CLOPIDOGREL 75MG TAB PO SCH (10:06)
[2021-10-26] MEDS: RANOLAZINE 500 MG TAB.SR.12H PO SCH ×2 (10:06→21:00)
[2021-10-26] MEDS: ISOSORBIDE MONO 30MG SR TAB PO SCH (10:06)
[2021-10-26] MEDS: ASPIRIN 81MG CHEW TAB PO SCH (10:06)
[2021-10-26] MEDS: ATORVASTATIN 40 MG TABLET PO SCH (20:59)
[2021-10-26] MEDS ORDERED: INSU200I4 SQ (21:18)
[2021-10-27] VITALS (15 sets, daily range): BP systolic 104–136; BP diastolic 36–61
[2021-10-27 05:18] LABS: HEMATOCRIT 29.2 % (36-48); MEAN CORPUSCULAR HEMOGLOBIN 28.5 pg (27.0-33.0); MEAN CORPUSCULAR HGB CONC 31.5 g/dL (32.0-36.0); MEAN CORPUSCULAR VOLUME 90.4 fL (79-99); RED BLOOD CELL COUNT(AUTO) 3.23 MIL/uL (4.00-5.50); RED CELL DISTRIBUTION WIDTH 12.9 % (11.0-15.5); WHITE BLOOD COUNT (AUTO) 10.8 K/uL (4.8-10.8)
[2021-10-27 05:36] LABS: MAGNESIUM 2.5 mg/dL (1.80-2.40); POTASSIUM 5.3 mmol/L (3.5-5.1)
[2021-10-27 06:13] LABS: CREATININE 9.2 mg/dL (0.5-1.5)
[2021-10-27] MEDS: ASPIRIN 81MG CHEW TAB PO SCH (08:05)
[2021-10-27] MEDS: CLOPIDOGREL 75MG TAB PO SCH (08:05)
[2021-10-27] MEDS: METOPROLOL TARTRATE 25 MG TAB PO SCH (09:00)
[2021-10-27] MEDS: ISOSORBIDE MONO 30MG SR TAB PO SCH (09:00)
[2021-10-27] MEDS: RANOLAZINE 500 MG TAB.SR.12H PO SCH (09:00)
[2021-10-27] MEDS: ATORVASTATIN 40 MG TABLET PO SCH (11:39)
[2021-10-27] MEDS ORDERED: NITROGLYCERIN 0.4 MG SL TAB SL PRN (16:00)
[2021-10-27] MEDS: INSULIN HUMULIN R 100 UNIT/ML 3ML SQ SCH ×2 (16:10→21:00)
[2021-10-27] MEDS ORDERED: METO25 PO (18:14)
[2021-10-27] MEDS ORDERED: ISOS30TA92 PO (18:14)
[2021-10-27] MEDS ORDERED: RANO500T6 PO (18:14)
[2021-10-27] MEDS ORDERED: CLOP75TA32 PO (18:14)
== END 2021-10-27 23:29 | disposition home or self-care (01) | DRG 280 ==
LOC: EDH 08:23 → EDHIP 09:43 → 2DH 15:17
PROVIDERS: ADMIT Internal Medicine Infectious Disease; ATTEND Internal Medicine Infectious Disease
PROC: 5A1D70Z Performance of Urinary Filtration, Intermittent, Less than 6 Hours Per Day (ICD-10-PCS; principal; 2021-10-25)
PROC: 5A1D70Z Performance of Urinary Filtration, Intermittent, Less than 6 Hours Per Day (ICD-10-PCS; 2021-10-27)
DX: I21.4 Non-ST elevation (NSTEMI) myocardial infarction (principal); N18.6 End stage renal disease; I12.0 Hypertensive chronic kidney disease with stage 5 chronic kidney disease or end stage renal disease; J81.1 Chronic pulmonary edema; I25.118 Atherosclerotic heart disease of native coronary artery with other forms of angina pectoris; E87.5 Hyperkalemia; H54.62 Unqualified visual loss, left eye, normal vision right eye; E78.5 Hyperlipidemia, unspecified; D64.9 Anemia, unspecified; E11.22 Type 2 diabetes mellitus with diabetic chronic kidney disease; E87.70 Fluid overload, unspecified; E78.00 Pure hypercholesterolemia, unspecified; R53.81 Other malaise; E66.9 Obesity, unspecified; Z68.26 Body mass index [BMI] 26.0-26.9, adult; Z95.1 Presence of aortocoronary bypass graft; I25.2 Old myocardial infarction; Z99.2 Dependence on renal dialysis; Z91.040 Latex allergy status; Z88.8 Allergy status to other drugs, medicaments and biological substances; Z91.018 Allergy to other foods; Z82.3 Family history of stroke; Z83.3 Family history of diabetes mellitus; Z82.49 Family history of ischemic heart disease and other diseases of the circulatory system
CPT/HCPCS: 36415; 71045; 80048; 80053; 82550; 82948; 83735; 83874; 83880; 84100; 84484; 85025; 85027; 86704; 86706; 87340; 90935; 93005; G0378; J1815; J2405

== ENCOUNTER 2021-11-05 02:19 | Emergency (ER) | payer MEDICARE ==
[~2021-11-05] VITALS: Ht 167.6 cm; Wt 117.5 kg
[~2021-11-05 02:19] MED LIST changes: +CLOP75TA32 PO; +INSU200I4 SQ; +ISOS30TA92 PO; +METO25 PO; +RANO500T6 PO
[2021-11-05] MEDS ORDERED: ORPHENADRINE CITRATE 30 MG/ML ML IV ONE (03:00)
[2021-11-05 03:30] VITALS: BP 119/41
[2021-11-05] MEDS ORDERED: TIZA-330 PO (04:04)
== END 2021-11-05 05:25 | disposition home or self-care (01) ==
LOC: EDH 02:19
DX: S33.5XXA Sprain of ligaments of lumbar spine, initial encounter (principal); R42 Dizziness and giddiness; M54.6 Pain in thoracic spine; I13.10 Hypertensive heart and chronic kidney disease without heart failure, with stage 1 through stage 4 chronic kidney disease, or unspecified chronic kidney disease; E09.22 Drug or chemical induced diabetes mellitus with diabetic chronic kidney disease; N18.9 Chronic kidney disease, unspecified; E78.00 Pure hypercholesterolemia, unspecified; Z98.890 Other specified postprocedural states; Z79.4 Long term (current) use of insulin; Z79.82 Long term (current) use of aspirin; Z79.899 Other long term (current) drug therapy; Z88.8 Allergy status to other drugs, medicaments and biological substances; Z91.040 Latex allergy status; Z91.018 Allergy to other foods; W06.XXXA Fall from bed, initial encounter; Y93.89 Activity, other specified; Y92.098 Other place in other non-institutional residence as the place of occurrence of the external cause; Y99.8 Other external cause status
CPT/HCPCS: 72100; 93005; 96374; 99284; J2360

== ENCOUNTER 2021-11-17 05:24 | Inpatient (IN) | payer MEDICARE ==
[2021-11-17] VITALS (14 sets, daily range): BP systolic 99–141; BP diastolic 32–64
[~2021-11-17] VITALS: Ht 167.6 cm; Wt 115.1 kg
[~2021-11-17 05:24] MED LIST changes: +TIZA-330 PO
[2021-11-17 06:06] LABS: BASOPHILS % (AUTO) 0.9 % (0.0-5.0); EOSINOPHILS % (AUTO) 3.9 % (0.0-8.0); LYMPHOCYTES % (AUTO) 13.6 % (21.0-51.0); MEAN CORPUSCULAR HEMOGLOBIN 30.2 pg (27.0-33.0); MEAN CORPUSCULAR HGB CONC 31.4 g/dL (32.0-36.0); MEAN CORPUSCULAR VOLUME 96.2 fL (79-99); MONOCYTES % (AUTO) 7.7 % (3.0-13.0); NEUTROPHILS % (AUTO) 73.4 % (40.0-77.0); PLATELET COUNT (AUTO) 185 K/uL (130-400); RED BLOOD CELL COUNT(AUTO) 3.64 MIL/uL (4.00-5.50); RED CELL DISTRIBUTION WIDTH 13.2 % (11.0-15.5); WHITE BLOOD COUNT (AUTO) 10.5 K/uL (4.8-10.8)
[2021-11-17 06:27] LABS: INR 0.98 (0.85-1.15); PROTHROMBIN TIME 10.7 SEC (9.6-11.6)
[2021-11-17 06:29] LABS: PARTIAL THROMBOPLASTIN TIME 26.4 SEC (26.3-35.5)
[2021-11-17 06:30] LABS: ABG BASE EXCESS -5.1 mmol/L (-2.0-3.0); ABG HCO3 18.3 mmol/L (21.0-28.0); ABG OXYGEN SATURATION 92.5 % (95.0-99.0); ABG PCO2 30 mmHg (32-45)
[2021-11-17 06:31] LABS: ALBUMIN 3.6 g/dL (3.5-5.0); POTASSIUM 5.8 mmol/L (3.5-5.1)
[2021-11-17 06:36] LABS: BILIRUBIN,TOTAL 0.7 mg/dL (0.2-1.0); TOTAL PROTEIN, SERUM 7.3 g/dL (6.0-8.3)
[2021-11-17 06:38] LABS: CREATININE 10.9 mg/dL (0.5-1.5)
[2021-11-17 06:54] LABS: B-TYPE NATRIURETIC PEPTIDE 1310 pg/mL (0-100)
[2021-11-17] MEDS ORDERED: LACTULOSE 20 GM/30 ML UDCUP PO SCH (09:00)
[2021-11-17] MEDS ORDERED: LACTULOSE 20 GM/30 ML UDCUP PO PRN (09:00)
[2021-11-17] MEDS: PANTOPRAZOLE 40 MG/VIAL IVP SCH (09:19)
[2021-11-17] MEDS ORDERED: GLUCAGON 1MG KIT 1 MG ML IM PRN (09:30)
[2021-11-17] MEDS ORDERED: DEXTROSE 50%-WATER 50 ML DISP.SYRIN IV PRN (09:30)
[2021-11-17] MEDS ORDERED: ACETAMINOPHEN 325 MG TAB PO PRN (09:30)
[2021-11-17] MEDS ORDERED: ONDANSETRON 4MG INJ IVP PRN (09:30)
[2021-11-17] MEDS: HEPARIN 5,000 UNIT VIAL SQ SCH ×2 (09:53→21:28)
[2021-11-17] MEDS: INSULIN HUMULIN R 100 UNIT/ML 3ML SQ SCH ×3 (10:40→21:00)
[2021-11-17 13:38] LABS: APPEARANCE,URINE TURBID (CLEAR); BILIRUBIN,URINE SMALL (NEGATIVE); COLOR,URINE YELLOW (YELLOW); GLUCOSE, URINE (UA) NEGATIVE (NEGATIVE); KETONES,URINE 5 mg/dL (NEGATIVE); LEUKOCYTE ESTERASE ,URINE MODERATE (NEGATIVE); NITRATE,URINE NEGATIVE (NEGATIVE); OCCULT BLOOD,URINE TRACE-INTACT (NEGATIVE); PROTEIN,URINE 100 mg/dL (NEGATIVE); UROBILINOGEN,URINE 0.2 mg/dL (0.2-1.0)
[2021-11-17 13:40] LABS: BACTERIA,URINE Many /HPF (None Seen); RBC,URINE 0-1 /HPF (0-1); SQUAMOUS EPITHELIAL CELL,UR Many /HPF (0-2); WBC,URINE 26-50 /HPF (0-1)
[2021-11-17] MEDS ORDERED: LOPERAMIDE HCL 2 MG CAP PO PRN (16:30)
[2021-11-17] MEDS: ASPIRIN 81MG CHEW TAB PO SCH (16:43)
[2021-11-17 18:25] LABS: HEPATITIS B SURFACE ANTIGEN Non-Reactive (Negative)
[2021-11-17] MEDS ORDERED: MIDODRINE HCL 5 MG TABLET ONE (18:48)
[2021-11-17] MEDS: MIDODRINE HCL 5 MG TABLET PO SCH ×2 (18:53→21:28)
[2021-11-17] MEDS ORDERED: INSU100I3 SQ (23:26)
[2021-11-17] MEDS ORDERED: RANO500T6 PO (23:26)
[2021-11-17] MEDS ORDERED: PANT40TA54 PO (23:26)
[2021-11-17] MEDS ORDERED: ASPI-1197 PO (23:26)
[2021-11-17] MEDS ORDERED: NITR0.4T SL (23:26)
[2021-11-17] MEDS ORDERED: SENN-297 PO (23:26)
[2021-11-17] MEDS ORDERED: FERR-82 PO (23:26)
[2021-11-17] MEDS ORDERED: INSU200I4 SQ (23:26)
[2021-11-17] MEDS ORDERED: FOLI0.8T3 PO (23:26)
[2021-11-17] MEDS ORDERED: VITA400C79 PO (23:26)
[2021-11-17] MEDS ORDERED: FOLI1TAB61 PO (23:26)
[2021-11-17] MEDS ORDERED: LEVO150C4 PO (23:26)
[2021-11-17] MEDS ORDERED: [UNRECOGNIZED DRUG - CODE] PO (23:26)
[2021-11-17] MEDS ORDERED: ATOR40TA71 PO (23:26)
[2021-11-18] MEDS ORDERED: MUPI22O TP (01:17)
[2021-11-18] MEDS ORDERED: CYCL30DR OP (01:17)
[2021-11-18] MEDS ORDERED: BRIM5DRO21 OP (01:17)
[2021-11-18] MEDS ORDERED: TRAV2.5D OD (01:17)
[2021-11-18] MEDS ORDERED: NYST30O TP (01:17)
[2021-11-18] MEDS ORDERED: CLOP75TA14 PO (01:17)
[2021-11-18 01:50] VITALS: BP 112/65
[2021-11-18 04:06] VITALS: BP 98/55
[2021-11-18] MEDS: INSULIN HUMULIN R 100 UNIT/ML 3ML SQ SCH ×4 (05:53→20:25)
[2021-11-18 05:56] LABS: BASOPHILS % (AUTO) 0.7 % (0.0-5.0); EOSINOPHILS % (AUTO) 4.6 % (0.0-8.0); HEMATOCRIT 32.6 % (36-48); LYMPHOCYTES % (AUTO) 19.6 % (21.0-51.0); MEAN CORPUSCULAR HGB CONC 31.6 g/dL (32.0-36.0); MEAN CORPUSCULAR VOLUME 91.8 fL (79-99); MONOCYTES % (AUTO) 8.6 % (3.0-13.0); NEUTROPHILS % (AUTO) 66.1 % (40.0-77.0); PLATELET COUNT (AUTO) 205 K/uL (130-400); RED BLOOD CELL COUNT(AUTO) 3.55 MIL/uL (4.00-5.50); RED CELL DISTRIBUTION WIDTH 13.2 % (11.0-15.5); WHITE BLOOD COUNT (AUTO) 8.5 K/uL (4.8-10.8)
[2021-11-18 06:10] LABS: INR 1.01 (0.85-1.15)
[2021-11-18 06:11] LABS: PARTIAL THROMBOPLASTIN TIME 29.6 SEC (26.3-35.5)
[2021-11-18 06:19] LABS: MAGNESIUM 2.4 mg/dL (1.80-2.40); PHOSPHORUS 5.1 mg/dL (2.5-4.9); POTASSIUM 4.3 mmol/L (3.5-5.1)
[2021-11-18 06:33] LABS: CREATININE 8.1 mg/dL (0.5-1.5)
[2021-11-18 07:05] VITALS: BP 141/47
[2021-11-18] MEDS: MIDODRINE HCL 5 MG TABLET PO SCH ×4 (09:00→20:23)
[2021-11-18] MEDS: PANTOPRAZOLE 40 MG/VIAL IVP SCH (09:27)
[2021-11-18] MEDS: HEPARIN 5,000 UNIT VIAL SQ SCH ×2 (09:29→20:24)
[2021-11-18 11:05] VITALS: BP 120/36
[2021-11-18 15:05] VITALS: BP 120/48
[2021-11-18] MEDS: ASPIRIN 81MG CHEW TAB PO SCH (15:27)
[2021-11-18 19:00] VITALS: BP 126/50
[2021-11-19] VITALS (19 sets, daily range): BP systolic 93–160; BP diastolic 44–80
[2021-11-19 05:36] LABS: HEMATOCRIT 31.9 % (36-48); MEAN CORPUSCULAR HGB CONC 31.7 g/dL (32.0-36.0); MEAN CORPUSCULAR VOLUME 91.7 fL (79-99); RED BLOOD CELL COUNT(AUTO) 3.48 MIL/uL (4.00-5.50); RED CELL DISTRIBUTION WIDTH 13.2 % (11.0-15.5); WHITE BLOOD COUNT (AUTO) 8.3 K/uL (4.8-10.8)
[2021-11-19 05:58] LABS: ALBUMIN 3.1 g/dL (3.5-5.0); BILIRUBIN,TOTAL 0.5 mg/dL (0.2-1.0); MAGNESIUM 2.5 mg/dL (1.80-2.40); POTASSIUM 4.2 mmol/L (3.5-5.1); TOTAL PROTEIN, SERUM 6.9 g/dL (6.0-8.3)
[2021-11-19] MEDS: INSULIN HUMULIN R 100 UNIT/ML 3ML SQ SCH ×2 (05:59→11:30)
[2021-11-19 06:00] LABS: CREATININE 9.6 mg/dL (0.5-1.5)
[2021-11-19] MEDS: MIDODRINE HCL 5 MG TABLET PO SCH ×2 (09:04→14:00)
[2021-11-19] MEDS: PANTOPRAZOLE 40 MG/VIAL IVP SCH (09:04)
[2021-11-19] MEDS: HEPARIN 5,000 UNIT VIAL SQ SCH (09:30)
[2021-11-19] MEDS ORDERED: ALBUMIN (HUMAN) 25% 100 ML IV SCH (11:30)
[2021-11-19] MEDS: ASPIRIN 81MG CHEW TAB PO SCH (15:49)
== END 2021-11-19 17:15 | disposition home or self-care (01) | DRG 291 ==
LOC: EDH 05:24 → EDHIP 09:12 → OBSVTOIN 09:12 → 3BH 11-18 00:40
PROVIDERS: ADMIT Internal Medicine Infectious Disease; ATTEND Internal Medicine Infectious Disease
PROC: 5A1D70Z Performance of Urinary Filtration, Intermittent, Less than 6 Hours Per Day (ICD-10-PCS; principal; 2021-11-17)
PROC: 5A1D70Z Performance of Urinary Filtration, Intermittent, Less than 6 Hours Per Day (ICD-10-PCS; 2021-11-19)
DX: I13.2 Hypertensive heart and chronic kidney disease with heart failure and with stage 5 chronic kidney disease, or end stage renal disease (principal); N18.6 End stage renal disease; J96.91 Respiratory failure, unspecified with hypoxia; J81.0 Acute pulmonary edema; K56.609 Unspecified intestinal obstruction, unspecified as to partial versus complete obstruction; Z68.41 Body mass index [BMI] 40.0-44.9, adult; E87.5 Hyperkalemia; K52.9 Noninfective gastroenteritis and colitis, unspecified; I25.10 Atherosclerotic heart disease of native coronary artery without angina pectoris; E78.5 Hyperlipidemia, unspecified; H54.62 Unqualified visual loss, left eye, normal vision right eye; E78.00 Pure hypercholesterolemia, unspecified; E66.01 Morbid (severe) obesity due to excess calories; B96.1 Klebsiella pneumoniae [K. pneumoniae] as the cause of diseases classified elsewhere; B96.89 Other specified bacterial agents as the cause of diseases classified elsewhere; I50.9 Heart failure, unspecified; E11.22 Type 2 diabetes mellitus with diabetic chronic kidney disease; I25.2 Old myocardial infarction; Z91.040 Latex allergy status; Z91.018 Allergy to other foods; Z99.2 Dependence on renal dialysis; Z95.1 Presence of aortocoronary bypass graft; Z91.15 Patient's noncompliance with renal dialysis; Z88.8 Allergy status to other drugs, medicaments and biological substances; Z83.3 Family history of diabetes mellitus; Z82.49 Family history of ischemic heart disease and other diseases of the circulatory system
CPT/HCPCS: 36415; 36600; 71045; 74176; 80048; 80053; 81001; 82270; 82550; 82803; 82948; 83605; 83735; 83880; 84100; 84145; 84484; 85025; 85027; 85610; 85730; 86704; 86706; 87040; 87046; 87077; 87088; 87186; 87324; 87340; 87507; 87635; 87804; 90935; 93005; 97039; C9113; C9803; G0378; J1644; J1815; P9046

== ENCOUNTER 2021-12-22 14:50 | Emergency (ER) | payer MEDICARE ==
[~2021-12-22] VITALS: Ht 162.6 cm; Wt 113.4 kg
[~2021-12-22 14:50] MED LIST changes: +ASPI-1197 PO; +ATOR40TA71 PO; +BRIM5DRO21 OP; +CLOP75TA14 PO; +CYCL30DR OP; +FERR-82 PO; +FOLI0.8T3 PO; +LEVO150C4 PO; +MUPI22O TP; +NITR0.4T SL; +NYST30O TP; +TRAV2.5D OD; +VITA400C79 PO; +[UNRECOGNIZED DRUG - CODE] PO
[2021-12-22 15:04] VITALS: BP 133/40
== END 2021-12-22 16:46 | disposition home or self-care (01) ==
LOC: EDH 14:50
DX: S33.5XXA Sprain of ligaments of lumbar spine, initial encounter (principal); I12.0 Hypertensive chronic kidney disease with stage 5 chronic kidney disease or end stage renal disease; E11.22 Type 2 diabetes mellitus with diabetic chronic kidney disease; N18.6 End stage renal disease; I25.2 Old myocardial infarction; Z91.040 Latex allergy status; Z91.018 Allergy to other foods; Z88.6 Allergy status to analgesic agent; Z88.8 Allergy status to other drugs, medicaments and biological substances; Z79.899 Other long term (current) drug therapy; Z79.4 Long term (current) use of insulin; Z79.82 Long term (current) use of aspirin; Z86.73 Personal history of transient ischemic attack (TIA), and cerebral infarction without residual deficits; Z98.890 Other specified postprocedural states; W19.XXXA Unspecified fall, initial encounter; Y93.89 Activity, other specified; Y92.89 Other specified places as the place of occurrence of the external cause; Y99.8 Other external cause status
CPT/HCPCS: 72100

== ENCOUNTER 2022-07-24 14:53 | Emergency (ER) | payer MEDICARE ==
[~2022-07-24] VITALS: Ht 167.6 cm; Wt 113.4 kg
[2022-07-24] MEDS ORDERED: ORPHENADRINE CITRATE 30 MG/ML ML IVP ONE (16:00)
[2022-07-24] MEDS ORDERED: MORPHINE 4 MG SYG IVP ONE (16:00)
[2022-07-24] MEDS ORDERED: DIAZEPAM 2 MG TAB PO ONE (19:30)
[2022-07-24] MEDS ORDERED: ACETAMINOPHEN 325 MG TAB PO ONE (19:30)
[2022-07-24] MEDS ORDERED: DIAZ2TAB3 PO (19:34)
[2022-07-24] MEDS ORDERED: ACET-2079 PO (19:34)
[2022-07-24 19:54] VITALS: BP 151/62
== END 2022-07-24 20:24 | disposition home or self-care (01) ==
LOC: EDH 14:53
DX: S16.1XXA Strain of muscle, fascia and tendon at neck level, initial encounter (principal); S39.012A Strain of muscle, fascia and tendon of lower back, initial encounter; S00.03XA Contusion of scalp, initial encounter; M62.838 Other muscle spasm; I12.0 Hypertensive chronic kidney disease with stage 5 chronic kidney disease or end stage renal disease; E11.22 Type 2 diabetes mellitus with diabetic chronic kidney disease; N18.6 End stage renal disease; E78.00 Pure hypercholesterolemia, unspecified; Z79.02 Long term (current) use of antithrombotics/antiplatelets; Z79.4 Long term (current) use of insulin; Z79.82 Long term (current) use of aspirin; Z88.5 Allergy status to narcotic agent; Z88.8 Allergy status to other drugs, medicaments and biological substances; Z95.1 Presence of aortocoronary bypass graft; W10.1XXA Fall (on)(from) sidewalk curb, initial encounter; Y92.89 Other specified places as the place of occurrence of the external cause; Y93.89 Activity, other specified; Y99.8 Other external cause status
CPT/HCPCS: 99285; 70450; 96374; 96375; 72125; 72131; J2270; J2360

== ENCOUNTER 2023-04-17 16:08 | Inpatient (IN) | payer MEDICARE ==
[~2023-04-17] VITALS: Ht 167.6 cm; Wt 113.2 kg
[2023-04-17] VITALS (12 sets, daily range): BP systolic 112–190; BP diastolic 42–98; PULSE 83–91; RESP 13–25; TEMP 98.3
[~2023-04-17 16:08] MED LIST changes: -AEC81 PO; +ALBU18HF7 IH; -ATOR40TA69 PO; -ATOR40TA71 PO; -BRIM155OS OD; +BRIM5DRO2 OP; -BRIM5DRO21 OP; -BRINOS OD; -CLOP75TA14 PO; -CYCL30DR OD; -FERR-82 PO; -FERR325T22 PO; +FERR325T29 PO; +FLUT1BLS15 IH; -FOLI0.8T3 PO; -FOLI1 PO; -FOLI1TAB61 PO; -INSU200I4 SQ; -ISOS30TA92 PO; +ISOS60TA77 PO; -LEVO150C4 PO; -LEVO150T11 PO; +LEVO175C2 PO; -METO25 PO; -MUPI22O TP; -NITR0.4T SL; +NITR0.4T50 SL; -NYST30O TP; +PRED5DRO25 OP; +RANO500T2 PO; -RANO500T6 PO; +SUCR500T PO; -TIMO1DRO5 OD; +TIMO1DRO9 OP; -TIZA-330 PO; -TRAV2.5D OD; -VITA-164 PO; -VITA400C79 PO; +XALA2.5OS OD; -[UNRECOGNIZED DRUG - CODE] PO; -[UNRECOGNIZED DRUG - OTHER] PO
[2023-04-17 18:32] LABS: BASOPHILS # (AUTO) 0.05 K/uL (0.00-0.20); BASOPHILS % (AUTO) 0.4 % (0.0-5.0); EOSINOPHILS # (AUTO) 0.44 K/uL (0.00-0.70); EOSINOPHILS % (AUTO) 3.4 % (0.0-8.0); HEMATOCRIT 35.5 % (36-48); IMMATURE GRANULOCYTE ABSOLUTE 0.05 K/uL (0-1); LYMPHOCYTES # (AUTO) 1.5 K/uL (1.0-4.8); LYMPHOCYTES % (AUTO) 11.4 % (21.0-51.0); MEAN CORPUSCULAR HEMOGLOBIN 29.5 pg (27.0-33.0); MEAN CORPUSCULAR HGB CONC 31.3 g/dL (32.0-36.0); MEAN CORPUSCULAR VOLUME 94.4 fL (79-99); MONOCYTES # (AUTO) 0.7 K/uL (0.1-1.0); MONOCYTES % (AUTO) 5.5 % (3.0-13.0); NEUTROPHILS # (AUTO) 10.3 K/uL (1.8-7.7); NEUTROPHILS % (AUTO) 78.9 % (40.0-77.0); PLATELET COUNT (AUTO) 223 K/uL (130-400); RED BLOOD CELL COUNT(AUTO) 3.76 MIL/uL (4.00-5.50); RED CELL DISTRIBUTION WIDTH 13.4 % (11.0-15.5)
[2023-04-17 18:56] LABS: ALBUMIN 3.2 g/dL (3.5-5.0); BILIRUBIN,TOTAL 0.6 mg/dL (0.2-1.0); POTASSIUM 4.2 mmol/L (3.5-5.1); TOTAL PROTEIN, SERUM 7.5 g/dL (6.0-8.3)
[2023-04-17] MEDS ORDERED: VANCOMYCIN KIT 1 GM/250 ML IV.KIT IV ONE (19:00)
[2023-04-17] MEDS ORDERED: ZOSYN 3.375GM +NS 50ML IVPB ONE (19:00)
[2023-04-17 19:03] LABS: CREATININE 9.4 mg/dL (0.5-1.5)
[2023-04-17] MEDS ORDERED: NOREPINEPHRIN 4MG/NS 250ML 250 ML IV ONE (19:23)
[2023-04-17 19:56] LABS: INR 0.93 (0.85-1.15); PROTHROMBIN TIME 10.5 SEC (9.6-11.6)
[2023-04-17 19:57] LABS: PARTIAL THROMBOPLASTIN TIME 28.8 SEC (26.3-35.5)
[2023-04-17] MEDS ORDERED: NOREPINEPHRIN 4MG/NS 250ML 250 ML IV SCH (22:30)
[2023-04-17] MEDS ORDERED: HYDROCODONE/ACETAMINOPHEN 5/325 MG TAB PO PRN (23:00)
[2023-04-17] MEDS ORDERED: ONDANSETRON 4MG INJ IV PRN (23:00)
[2023-04-17] MEDS ORDERED: ASPIRIN 81MG CHEW TAB PO ONE (23:00)
[2023-04-17] MEDS ORDERED: HYDROMORPHONE 1 MG INJ IV PRN (23:00)
[2023-04-17] MEDS ORDERED: ACETAMINOPHEN 325 MG TAB PO PRN (23:00)
[2023-04-17] MEDS ORDERED: SODIUM CHLORIDE 3% FOR INHALATION 4 ML/AMP VIAL.NEB IH ONE (23:37)
[2023-04-17] MEDS: IPRATROPIUM/ALBUTEROL SULFATE 3 ML SOLUTION IH SCH (23:44)
[2023-04-18] VITALS (58 sets, daily range): BP systolic 74–208; BP diastolic 27–168; PULSE 72–105; RESP 12–28; TEMP 98.1; O2SAT 98–99
[2023-04-18 06:25] LABS: BASOPHILS # (AUTO) 0.07 K/uL (0.00-0.20); BASOPHILS % (AUTO) 0.5 % (0.0-5.0); EOSINOPHILS # (AUTO) 0.46 K/uL (0.00-0.70); EOSINOPHILS % (AUTO) 3.6 % (0.0-8.0); HEMATOCRIT 37.5 % (36-48); IMMATURE GRANULOCYTE ABSOLUTE 0.05 K/uL (0-1); LYMPHOCYTES # (AUTO) 1.7 K/uL (1.0-4.8); LYMPHOCYTES % (AUTO) 13.5 % (21.0-51.0); MEAN CORPUSCULAR HEMOGLOBIN 29.3 pg (27.0-33.0); MEAN CORPUSCULAR HGB CONC 31.7 g/dL (32.0-36.0); MEAN CORPUSCULAR VOLUME 92.4 fL (79-99); MONOCYTES # (AUTO) 0.8 K/uL (0.1-1.0); NEUTROPHILS # (AUTO) 9.8 K/uL (1.8-7.7); PLATELET COUNT (AUTO) 238 K/uL (130-400); RED BLOOD CELL COUNT(AUTO) 4.06 MIL/uL (4.00-5.50); RED CELL DISTRIBUTION WIDTH 13.2 % (11.0-15.5); WHITE BLOOD COUNT (AUTO) 12.9 K/uL (4.8-10.8)
[2023-04-18 06:43] LABS: ALBUMIN 3.3 g/dL (3.5-5.0); BILIRUBIN,TOTAL 0.9 mg/dL (0.2-1.0); CREATININE 6.7 mg/dL (0.5-1.5); PHOSPHORUS 4.8 mg/dL (2.5-4.9); POTASSIUM 3.7 mmol/L (3.5-5.1); TOTAL PROTEIN, SERUM 7.9 g/dL (6.0-8.3)
[2023-04-18 06:48] LABS: HEMOGLOBIN A1C 6.7 % (4.0-6.0)
[2023-04-18] MEDS ORDERED: SODIUM CHLORIDE 3% FOR INHALATION 4 ML/AMP VIAL.NEB IH ONE (07:00)
[2023-04-18] MEDS: IPRATROPIUM/ALBUTEROL SULFATE 3 ML SOLUTION IH SCH ×3 (07:01→22:56)
[2023-04-18] MEDS: INSULIN HUMULIN R 100 UNIT/ML 3ML SQ SCH ×4 (07:30→20:47)
[2023-04-18] MEDS ORDERED: MIDODRINE HCL 5 MG TABLET ONE (08:44)
[2023-04-18] MEDS: ASPIRIN 81MG CHEW TAB PO SCH (08:48)
[2023-04-18] MEDS: PANTOPRAZOLE 40 MG TAB DR PO SCH (08:48)
[2023-04-18] MEDS: ZOSYN 3.375GM+NS 50ML 50 ML IVPB SCH ×2 (08:48→20:26)
[2023-04-18] MEDS: HEPARIN 5,000 UNIT VIAL SQ SCH ×2 (09:02→20:38)
[2023-04-18] MEDS: MIDODRINE HCL 5 MG TABLET PO SCH ×3 (09:03→20:26)
[2023-04-18 10:20] LABS: HEPATITIS B SURFACE ANTIGEN Non-Reactive (Nonreactive)
[2023-04-18 18:21] LABS: SARS-CoV-2, RNA, NAAT NEGATIVE SARS CoV-2 (NEGATIVE)
[2023-04-18 18:30] LABS: INFLUENZA TYPE A Negative For Type A (NEGATIVE); INFLUENZA TYPE B Negative For Type B (NEGATIVE)
[2023-04-19] VITALS (91 sets, daily range): BP systolic 46–165; BP diastolic 20–102; PULSE 74–93; RESP 5–33; TEMP 97.7–97.9; O2SAT 97–98
[2023-04-19 03:42] LABS: ABG OXYGEN SATURATION 96.3 % (95.0-99.0); ABG PCO2 38 mmHg (32-45); ABG PH 7.435 (7.35-7.450); PO2, ARTERIAL BG 80.7 mmHg (83.0-108.0); VENT MODE, BG NC 2LPM RR (ROOM AIR)
[2023-04-19 04:19] LABS: HEMATOCRIT 34.2 % (36-48); MEAN CORPUSCULAR HEMOGLOBIN 29.5 pg (27.0-33.0); MEAN CORPUSCULAR HGB CONC 31.9 g/dL (32.0-36.0); MEAN CORPUSCULAR VOLUME 92.4 fL (79-99); RED BLOOD CELL COUNT(AUTO) 3.7 MIL/uL (4.00-5.50); RED CELL DISTRIBUTION WIDTH 13.3 % (11.0-15.5); WHITE BLOOD COUNT (AUTO) 8.6 K/uL (4.8-10.8)
[2023-04-19 04:38] LABS: BILIRUBIN,TOTAL 0.7 mg/dL (0.2-1.0); MAGNESIUM 2.3 mg/dL (1.80-2.40); POTASSIUM 4.3 mmol/L (3.5-5.1)
[2023-04-19 04:44] LABS: CREATININE 8.5 mg/dL (0.5-1.5)
[2023-04-19] MEDS: IPRATROPIUM/ALBUTEROL SULFATE 3 ML SOLUTION IH SCH ×4 (06:25→23:16)
[2023-04-19] MEDS: INSULIN HUMULIN R 100 UNIT/ML 3ML SQ SCH ×4 (06:50→20:31)
[2023-04-19] MEDS: MIDODRINE HCL 5 MG TABLET PO SCH ×3 (08:44→20:09)
[2023-04-19] MEDS: PANTOPRAZOLE 40 MG TAB DR PO SCH (08:45)
[2023-04-19] MEDS: ASPIRIN 81MG CHEW TAB PO SCH (08:45)
[2023-04-19] MEDS: ZOSYN 3.375GM+NS 50ML 50 ML IVPB SCH ×2 (08:46→20:05)
[2023-04-19] MEDS: HEPARIN 5,000 UNIT VIAL SQ SCH ×2 (08:49→20:30)
[2023-04-19] MEDS ORDERED: CLOPIDOGREL 300MG TAB PO ONE (09:30)
[2023-04-19] MEDS: FLUDROCORTISONE ACETATE 0.1 MG TABLET PO SCH (09:51)
[2023-04-19 14:35] LABS: INR 0.93 (0.85-1.15); PROTHROMBIN TIME 10.7 SEC (9.6-11.6)
[2023-04-19 14:37] LABS: PARTIAL THROMBOPLASTIN TIME 29.2 SEC (26.3-35.5)
[2023-04-19 16:26] LABS: THYROID STIMULATING HORMONE 8.43 uIU/mL (0.36-3.74)
[2023-04-19] MEDS ORDERED: PHARMACY COMMUNICATION MISC SCH (17:30)
[2023-04-19] MEDS ORDERED: VANCOMYCIN PROTOCOL PER PHARMACY IV SCH (18:30)
[2023-04-19] MEDS ORDERED: COMPOUND IV REFRIGERATED 1 EACH IVSOLN MISC PRN (18:30)
[2023-04-19] MEDS ORDERED: LACTULOSE 20 GM/30 ML UDCUP PO PRN (19:00)
[2023-04-19] MEDS: VANCOMYCIN 1.25 GM/250 ML BAG 250 ML IV SCH (19:48)
[2023-04-19] MEDS: ATORVASTATIN 40 MG TABLET PO SCH (20:09)
[2023-04-20] VITALS (48 sets, daily range): BP systolic 78–153; BP diastolic 28–90; PULSE 72–94; RESP 11–29; O2SAT 97–100
[2023-04-20 04:32] LABS: BASOPHILS # (AUTO) 0.06 K/uL (0.00-0.20); BASOPHILS % (AUTO) 0.7 % (0.0-5.0); EOSINOPHILS # (AUTO) 0.45 K/uL (0.00-0.70); HEMATOCRIT 34.2 % (36-48); IMMATURE GRANULOCYTE ABSOLUTE 0.05 K/uL (0-1); LYMPHOCYTES # (AUTO) 1.2 K/uL (1.0-4.8); LYMPHOCYTES % (AUTO) 12.8 % (21.0-51.0); MEAN CORPUSCULAR HEMOGLOBIN 29.8 pg (27.0-33.0); MEAN CORPUSCULAR HGB CONC 32.2 g/dL (32.0-36.0); MEAN CORPUSCULAR VOLUME 92.7 fL (79-99); MONOCYTES % (AUTO) 10.5 % (3.0-13.0); NEUTROPHILS # (AUTO) 6.4 K/uL (1.8-7.7); NEUTROPHILS % (AUTO) 70.4 % (40.0-77.0); PLATELET COUNT (AUTO) 219 K/uL (130-400); RED BLOOD CELL COUNT(AUTO) 3.69 MIL/uL (4.00-5.50); RED CELL DISTRIBUTION WIDTH 13.3 % (11.0-15.5); WHITE BLOOD COUNT (AUTO) 9.1 K/uL (4.8-10.8)
[2023-04-20 04:55] LABS: BILIRUBIN,TOTAL 0.6 mg/dL (0.2-1.0); CREATININE 7.7 mg/dL (0.5-1.5); POTASSIUM 4.3 mmol/L (3.5-5.1); TOTAL PROTEIN, SERUM 7.3 g/dL (6.0-8.3)
[2023-04-20] MEDS: IPRATROPIUM/ALBUTEROL SULFATE 3 ML SOLUTION IH SCH ×4 (06:18→23:52)
[2023-04-20] MEDS: LEVOTHYROXINE 100 MCG TABLET PO SCH (06:47)
[2023-04-20] MEDS: LEVOTHYROXINE 75 MCG TABLET PO SCH (06:47)
[2023-04-20] MEDS: INSULIN HUMULIN R 100 UNIT/ML 3ML SQ SCH ×4 (06:53→20:25)
[2023-04-20] MEDS ORDERED: NON-FORMULARY MEDICATION 1 EACH (Levothyroxine Sodium (Levothyroxine) 175 MCG) PO SCH (07:30)
[2023-04-20] MEDS: ASPIRIN 81MG CHEW TAB PO SCH (08:24)
[2023-04-20] MEDS: CLOPIDOGREL 75MG TAB PO SCH (08:24)
[2023-04-20] MEDS: FLUDROCORTISONE ACETATE 0.1 MG TABLET PO SCH ×2 (08:25→08:29)
[2023-04-20] MEDS: PANTOPRAZOLE 40 MG TAB DR PO SCH (08:27)
[2023-04-20] MEDS: ZOSYN 3.375GM+NS 50ML 50 ML IVPB SCH ×2 (08:27→20:23)
[2023-04-20] MEDS: MIDODRINE HCL 5 MG TABLET PO SCH ×3 (08:27→17:05)
[2023-04-20] MEDS: HEPARIN 5,000 UNIT VIAL SQ SCH ×2 (08:29→20:24)
[2023-04-20] MEDS: VANCOMYCIN 1.25 GM/250 ML BAG 250 ML IV SCH (16:21)
[2023-04-20] MEDS: ATORVASTATIN 40 MG TABLET PO SCH (20:22)
[2023-04-21] VITALS (26 sets, daily range): BP systolic 90–132; BP diastolic 27–65; PULSE 66–110; RESP 16–20; TEMP 97.5–97.9; O2SAT 95–99
[2023-04-21] MEDS: NITROGLYCERIN 0.4 MG SL TAB SL PRN (01:40)
[2023-04-21 06:01] LABS: HEMATOCRIT 32.5 % (36-48); MEAN CORPUSCULAR HEMOGLOBIN 29.7 pg (27.0-33.0); MEAN CORPUSCULAR HGB CONC 31.4 g/dL (32.0-36.0); MEAN CORPUSCULAR VOLUME 94.5 fL (79-99); RED BLOOD CELL COUNT(AUTO) 3.44 MIL/uL (4.00-5.50); RED CELL DISTRIBUTION WIDTH 13.2 % (11.0-15.5); WHITE BLOOD COUNT (AUTO) 10.9 K/uL (4.8-10.8)
[2023-04-21] MEDS: INSULIN HUMULIN R 100 UNIT/ML 3ML SQ SCH ×4 (06:07→21:29)
[2023-04-21] MEDS: LEVOTHYROXINE 75 MCG TABLET PO SCH (06:07)
[2023-04-21] MEDS: LEVOTHYROXINE 100 MCG TABLET PO SCH (06:07)
[2023-04-21 06:24] LABS: ALBUMIN 2.9 g/dL (3.5-5.0); BILIRUBIN,TOTAL 0.6 mg/dL (0.2-1.0); MAGNESIUM 2.2 mg/dL (1.80-2.40); TOTAL PROTEIN, SERUM 7.1 g/dL (6.0-8.3)
[2023-04-21 06:27] LABS: CREATININE 9.7 mg/dL (0.5-1.5)
[2023-04-21] MEDS: IPRATROPIUM/ALBUTEROL SULFATE 3 ML SOLUTION IH SCH ×4 (07:07→23:45)
[2023-04-21] MEDS: ZOSYN 3.375GM+NS 50ML 50 ML IVPB SCH ×2 (08:09→21:31)
[2023-04-21] MEDS: FLUDROCORTISONE ACETATE 0.1 MG TABLET PO SCH ×2 (08:10)
[2023-04-21] MEDS: ASPIRIN 81MG CHEW TAB PO SCH (08:10)
[2023-04-21] MEDS: MIDODRINE HCL 5 MG TABLET PO SCH ×3 (08:10→21:28)
[2023-04-21] MEDS: CLOPIDOGREL 75MG TAB PO SCH (08:10)
[2023-04-21] MEDS: PANTOPRAZOLE 40 MG TAB DR PO SCH (08:10)
[2023-04-21] MEDS: HEPARIN 5,000 UNIT VIAL SQ SCH ×2 (08:13→21:30)
[2023-04-21 14:47] LABS: INR 0.93 (0.85-1.15); PROTHROMBIN TIME 10.4 SEC (9.6-11.6)
[2023-04-21 14:48] LABS: PARTIAL THROMBOPLASTIN TIME 29.3 SEC (26.3-35.5)
[2023-04-21] MEDS ORDERED: VANCOMYCIN 750MG VIAL IVPB SCH (16:00)
[2023-04-21] MEDS: ATORVASTATIN 40 MG TABLET PO SCH (21:28)
[2023-04-22] VITALS (14 sets, daily range): BP systolic 98–130; BP diastolic 30–55; PULSE 70–88; RESP 16–20; O2SAT 97–100
[2023-04-22 05:45] LABS: HEMATOCRIT 31.8 % (36-48); MEAN CORPUSCULAR HEMOGLOBIN 29.8 pg (27.0-33.0); MEAN CORPUSCULAR HGB CONC 31.8 g/dL (32.0-36.0); MEAN CORPUSCULAR VOLUME 93.8 fL (79-99); RED BLOOD CELL COUNT(AUTO) 3.39 MIL/uL (4.00-5.50); RED CELL DISTRIBUTION WIDTH 13.3 % (11.0-15.5); WHITE BLOOD COUNT (AUTO) 8.4 K/uL (4.8-10.8)
[2023-04-22 06:10] LABS: ALBUMIN 2.9 g/dL (3.5-5.0); BILIRUBIN,TOTAL 0.6 mg/dL (0.2-1.0); CREATININE 7.2 mg/dL (0.5-1.5); MAGNESIUM 1.9 mg/dL (1.80-2.40); POTASSIUM 3.9 mmol/L (3.5-5.1); TOTAL PROTEIN, SERUM 7.1 g/dL (6.0-8.3)
[2023-04-22] MEDS: LEVOTHYROXINE 100 MCG TABLET PO SCH (06:16)
[2023-04-22] MEDS: LEVOTHYROXINE 75 MCG TABLET PO SCH (06:16)
[2023-04-22] MEDS: INSULIN HUMULIN R 100 UNIT/ML 3ML SQ SCH ×4 (06:20→20:49)
[2023-04-22] MEDS: IPRATROPIUM/ALBUTEROL SULFATE 3 ML SOLUTION IH SCH ×4 (07:08→23:28)
[2023-04-22] MEDS: MIDODRINE HCL 5 MG TABLET PO SCH ×3 (08:07→20:33)
[2023-04-22] MEDS: FLUDROCORTISONE ACETATE 0.1 MG TABLET PO SCH ×2 (08:07→08:08)
[2023-04-22] MEDS: CLOPIDOGREL 75MG TAB PO SCH (08:07)
[2023-04-22] MEDS: PANTOPRAZOLE 40 MG TAB DR PO SCH (08:07)
[2023-04-22] MEDS: HEPARIN 5,000 UNIT VIAL SQ SCH ×2 (08:07→20:35)
[2023-04-22] MEDS: ASPIRIN 81MG CHEW TAB PO SCH (08:07)
[2023-04-22] MEDS: ZOSYN 3.375GM+NS 50ML 50 ML IVPB SCH ×2 (08:08→20:34)
[2023-04-22] MEDS: ACETAMINOPHEN 325 MG TAB PO PRN (15:00)
[2023-04-22] MEDS: NITROGLYCERIN 0.4 MG SL TAB SL PRN (16:25)
[2023-04-22] MEDS: ATORVASTATIN 40 MG TABLET PO SCH (20:33)
[2023-04-22] MEDS: 0.9%NACL 10ML VIAL IV SCH (20:34)
[2023-04-22] MEDS ORDERED: IPRATROPIUM/ALBUTEROL SULFATE 3 ML SOLUTION IH ONE (22:00)
[2023-04-23] VITALS (13 sets, daily range): BP systolic 94–110; BP diastolic 30–64; PULSE 71–92; RESP 18–20; O2SAT 97–100
[2023-04-23] MEDS: LEVOTHYROXINE 100 MCG TABLET PO SCH (05:30)
[2023-04-23] MEDS: LEVOTHYROXINE 75 MCG TABLET PO SCH (05:30)
[2023-04-23 05:45] LABS: HEMATOCRIT 32.2 % (36-48); MEAN CORPUSCULAR HEMOGLOBIN 29.6 pg (27.0-33.0); MEAN CORPUSCULAR HGB CONC 31.4 g/dL (32.0-36.0); MEAN CORPUSCULAR VOLUME 94.4 fL (79-99); RED BLOOD CELL COUNT(AUTO) 3.41 MIL/uL (4.00-5.50); RED CELL DISTRIBUTION WIDTH 13.2 % (11.0-15.5); WHITE BLOOD COUNT (AUTO) 8.8 K/uL (4.8-10.8)
[2023-04-23 06:06] LABS: ALBUMIN 2.9 g/dL (3.5-5.0); BILIRUBIN,TOTAL 0.5 mg/dL (0.2-1.0); MAGNESIUM 2.1 mg/dL (1.80-2.40); PHOSPHORUS 8.6 mg/dL (2.5-4.9); POTASSIUM 4.1 mmol/L (3.5-5.1); TOTAL PROTEIN, SERUM 7.1 g/dL (6.0-8.3)
[2023-04-23 06:24] LABS: CREATININE 8.9 mg/dL (0.5-1.5)
[2023-04-23] MEDS: INSULIN HUMULIN R 100 UNIT/ML 3ML SQ SCH ×4 (06:36→21:09)
[2023-04-23] MEDS: IPRATROPIUM/ALBUTEROL SULFATE 3 ML SOLUTION IH SCH ×4 (06:50→23:22)
[2023-04-23] MEDS: 0.9%NACL 10ML VIAL IV SCH ×2 (09:00→21:00)
[2023-04-23] MEDS: FLUDROCORTISONE ACETATE 0.1 MG TABLET PO SCH ×2 (09:30→09:47)
[2023-04-23] MEDS: ZOSYN 3.375GM+NS 50ML 50 ML IVPB SCH ×2 (09:39→21:05)
[2023-04-23] MEDS: HEPARIN 5,000 UNIT VIAL SQ SCH ×2 (09:42→21:06)
[2023-04-23] MEDS: ASPIRIN 81MG CHEW TAB PO SCH (09:45)
[2023-04-23] MEDS: CLOPIDOGREL 75MG TAB PO SCH (09:46)
[2023-04-23] MEDS: MIDODRINE HCL 5 MG TABLET PO SCH ×3 (09:46→21:05)
[2023-04-23] MEDS: PANTOPRAZOLE 40 MG TAB DR PO SCH (09:46)
[2023-04-23] MEDS: RANOLAZINE 500 MG TAB.SR.12H PO SCH ×2 (13:30→21:00)
[2023-04-23 14:12] LABS: HEMATOCRIT 32.5 % (36-48); MEAN CORPUSCULAR HEMOGLOBIN 29.7 pg (27.0-33.0); MEAN CORPUSCULAR VOLUME 92.9 fL (79-99); RED BLOOD CELL COUNT(AUTO) 3.5 MIL/uL (4.00-5.50); RED CELL DISTRIBUTION WIDTH 13.2 % (11.0-15.5); WHITE BLOOD COUNT (AUTO) 10.4 K/uL (4.8-10.8)
[2023-04-23 15:00] LABS: BILIRUBIN,TOTAL 0.4 mg/dL (0.2-1.0); POTASSIUM 3.9 mmol/L (3.5-5.1); TOTAL PROTEIN, SERUM 7.2 g/dL (6.0-8.3)
[2023-04-23 15:05] LABS: CREATININE 9.7 mg/dL (0.5-1.5)
[2023-04-23] MEDS: ATORVASTATIN 40 MG TABLET PO SCH (21:06)
[2023-04-24] VITALS (27 sets, daily range): BP systolic 89–137; BP diastolic 31–88; PULSE 75–87; RESP 16–22; TEMP 97.5–98.1; O2SAT 94–100
[2023-04-24] MEDS: LEVOTHYROXINE 100 MCG TABLET PO SCH (05:26)
[2023-04-24] MEDS: LEVOTHYROXINE 75 MCG TABLET PO SCH (05:26)
[2023-04-24 05:58] LABS: HEMATOCRIT 31.5 % (36-48); MEAN CORPUSCULAR HEMOGLOBIN 29.3 pg (27.0-33.0); MEAN CORPUSCULAR HGB CONC 31.7 g/dL (32.0-36.0); MEAN CORPUSCULAR VOLUME 92.4 fL (79-99); RED BLOOD CELL COUNT(AUTO) 3.41 MIL/uL (4.00-5.50); RED CELL DISTRIBUTION WIDTH 13.2 % (11.0-15.5); WHITE BLOOD COUNT (AUTO) 10.3 K/uL (4.8-10.8)
[2023-04-24] MEDS: INSULIN HUMULIN R 100 UNIT/ML 3ML SQ SCH ×2 (06:00→11:30)
[2023-04-24 06:14] LABS: ALBUMIN 2.8 g/dL (3.5-5.0); BILIRUBIN,TOTAL 0.5 mg/dL (0.2-1.0); MAGNESIUM 2.1 mg/dL (1.80-2.40)
[2023-04-24 06:15] LABS: VANCOMYCIN LEVEL 21.6 mcg/mL (18.0-26.0)
[2023-04-24] MEDS: IPRATROPIUM/ALBUTEROL SULFATE 3 ML SOLUTION IH SCH ×3 (06:26→19:00)
[2023-04-24 06:27] LABS: CREATININE 10.9 mg/dL (0.5-1.5)
[2023-04-24] MEDS: ZOSYN 3.375GM+NS 50ML 50 ML IVPB SCH ×2 (08:36→20:53)
[2023-04-24] MEDS: HEPARIN 5,000 UNIT VIAL SQ SCH ×2 (08:37→20:34)
[2023-04-24] MEDS: RANOLAZINE 500 MG TAB.SR.12H PO SCH ×2 (08:38→20:51)
[2023-04-24] MEDS: ASPIRIN 81MG CHEW TAB PO SCH (08:38)
[2023-04-24] MEDS: MIDODRINE HCL 5 MG TABLET PO SCH ×3 (08:38→20:52)
[2023-04-24] MEDS: PANTOPRAZOLE 40 MG TAB DR PO SCH (08:38)
[2023-04-24] MEDS: CLOPIDOGREL 75MG TAB PO SCH (08:39)
[2023-04-24] MEDS: FLUDROCORTISONE ACETATE 0.1 MG TABLET PO SCH ×2 (08:39→09:30)
[2023-04-24] MEDS: 0.9%NACL 10ML VIAL IV SCH ×2 (09:00→20:54)
[2023-04-24] MEDS ORDERED: INSULIN ASPART 16 UNIT SQ SCH (17:00)
[2023-04-24] MEDS: INSULIN LISPRO 100 UNIT/ML 3ML SQ SCH (17:34)
[2023-04-24] MEDS ORDERED: VANCOMYCIN 750MG VIAL IVPB SCH (20:00)
[2023-04-24] MEDS: ATORVASTATIN 40 MG TABLET PO SCH (20:51)
[2023-04-24] MEDS: VANCOMYCIN 750MG VIAL IVPB SCH (20:53)
[2023-04-25] VITALS (23 sets, daily range): BP systolic 65–130; BP diastolic 27–97; PULSE 61–84; RESP 17–20; O2SAT 97–100
[2023-04-25] MEDS: IPRATROPIUM/ALBUTEROL SULFATE 3 ML SOLUTION IH SCH ×5 (01:14→23:34)
[2023-04-25 04:49] LABS: HEMATOCRIT 32.8 % (36-48); MEAN CORPUSCULAR HEMOGLOBIN 29.3 pg (27.0-33.0); MEAN CORPUSCULAR HGB CONC 31.4 g/dL (32.0-36.0); MEAN CORPUSCULAR VOLUME 93.4 fL (79-99); RED BLOOD CELL COUNT(AUTO) 3.51 MIL/uL (4.00-5.50); RED CELL DISTRIBUTION WIDTH 13.2 % (11.0-15.5); WHITE BLOOD COUNT (AUTO) 9.9 K/uL (4.8-10.8)
[2023-04-25 05:04] LABS: ALBUMIN 2.8 g/dL (3.5-5.0); BILIRUBIN,TOTAL 0.5 mg/dL (0.2-1.0); CREATININE 7.7 mg/dL (0.5-1.5); MAGNESIUM 1.9 mg/dL (1.80-2.40); POTASSIUM 3.7 mmol/L (3.5-5.1)
[2023-04-25] MEDS: LEVOTHYROXINE 100 MCG TABLET PO SCH (05:35)
[2023-04-25] MEDS: LEVOTHYROXINE 75 MCG TABLET PO SCH (05:35)
[2023-04-25] MEDS: INSULIN LISPRO 100 UNIT/ML 3ML SQ SCH ×3 (06:16→17:00)
[2023-04-25] MEDS: FLUDROCORTISONE ACETATE 0.1 MG TABLET PO SCH ×2 (08:54→09:30)
[2023-04-25] MEDS: ASPIRIN 81MG CHEW TAB PO SCH ×2 (08:54→10:05)
[2023-04-25] MEDS: PANTOPRAZOLE 40 MG TAB DR PO SCH (08:55)
[2023-04-25] MEDS: RANOLAZINE 500 MG TAB.SR.12H PO SCH ×2 (08:55→21:55)
[2023-04-25] MEDS: HEPARIN 5,000 UNIT VIAL SQ SCH ×2 (08:56→21:59)
[2023-04-25] MEDS ORDERED: DEXTROSE 50%-WATER 50 ML DISP.SYRIN IV PRN (09:00)
[2023-04-25] MEDS ORDERED: GLUCAGON 1MG KIT 1 MG ML IM PRN (09:00)
[2023-04-25] MEDS: CLOPIDOGREL 75MG TAB PO SCH (10:05)
[2023-04-25] MEDS: ZOSYN 3.375GM+NS 50ML 50 ML IVPB SCH ×2 (10:05→21:55)
[2023-04-25] MEDS: 0.9%NACL 10ML VIAL IV SCH ×2 (10:05→21:55)
[2023-04-25] MEDS: MIDODRINE HCL 5 MG TABLET PO SCH ×3 (10:05→21:55)
[2023-04-25] MEDS ORDERED: MIDODRINE HCL 5 MG TABLET PO STA (12:21)
[2023-04-25] MEDS ORDERED: MIDAZOLAM HCL 1 MG/ML 2ML VIAL ONE (13:43)
[2023-04-25] MEDS ORDERED: LIDOCAINE HCL 400MG/20ML VIAL ONE (13:43)
[2023-04-25] MEDS ORDERED: FENTANYL CITRATE PF 50 MCG/1 ML 2ML VIAL ONE (13:43)
[2023-04-25] MEDS ORDERED: IOHEXOL-350 50ML VIAL IV ONE (13:44)
[2023-04-25] MEDS ORDERED: NITROGLYCERIN 50MG VIAL ONE (13:44)
[2023-04-25] MEDS ORDERED: IOHEXOL-350 75 ML VIAL IV ONE (13:44)
[2023-04-25] MEDS: NITROGLYCERIN 0.4 MG SL TAB SL PRN (16:01)
[2023-04-25] MEDS: ATORVASTATIN 40 MG TABLET PO SCH (21:55)
[2023-04-26] VITALS (24 sets, daily range): BP systolic 90–119; BP diastolic 25–66; PULSE 69–93; RESP 16–20; TEMP 97.8–97.9; O2SAT 98–99
[2023-04-26] MEDS: LEVOTHYROXINE 100 MCG TABLET PO SCH (06:16)
[2023-04-26] MEDS: LEVOTHYROXINE 75 MCG TABLET PO SCH (06:16)
[2023-04-26 06:21] LABS: ALBUMIN 2.7 g/dL (3.5-5.0); BILIRUBIN,TOTAL 0.4 mg/dL (0.2-1.0); TOTAL PROTEIN, SERUM 6.6 g/dL (6.0-8.3)
[2023-04-26 06:24] LABS: CREATININE 9.6 mg/dL (0.5-1.5)
[2023-04-26] MEDS: INSULIN LISPRO 100 UNIT/ML 3ML SQ SCH ×3 (06:24→17:00)
[2023-04-26] MEDS: IPRATROPIUM/ALBUTEROL SULFATE 3 ML SOLUTION IH SCH ×4 (06:32→23:39)
[2023-04-26 06:37] LABS: POTASSIUM 4.3 mmol/L (3.5-5.1)
[2023-04-26] MEDS: FLUDROCORTISONE ACETATE 0.1 MG TABLET PO SCH ×2 (09:00→09:30)
[2023-04-26] MEDS ORDERED: METOPROLOL SUCCINATE 50 MG TAB.SR.24H PO ONE (09:30)
[2023-04-26] MEDS: 0.9%NACL 10ML VIAL IV SCH ×2 (10:45→21:03)
[2023-04-26] MEDS: RANOLAZINE 500 MG TAB.SR.12H PO SCH ×2 (10:46→21:02)
[2023-04-26] MEDS: ZOSYN 3.375GM+NS 50ML 50 ML IVPB SCH ×2 (10:46→21:01)
[2023-04-26] MEDS: ASPIRIN 81MG CHEW TAB PO SCH (10:46)
[2023-04-26] MEDS: MIDODRINE HCL 5 MG TABLET PO SCH ×3 (10:46→21:02)
[2023-04-26] MEDS: PANTOPRAZOLE 40 MG TAB DR PO SCH (10:46)
[2023-04-26] MEDS: CLOPIDOGREL 75MG TAB PO SCH (10:46)
[2023-04-26] MEDS: HEPARIN 5,000 UNIT VIAL SQ SCH ×2 (10:48→21:03)
[2023-04-26] MEDS: ACETAMINOPHEN 325 MG TAB PO PRN (16:53)
[2023-04-26] MEDS: ATORVASTATIN 40 MG TABLET PO SCH (21:02)
[2023-04-26] MEDS: VANCOMYCIN 750MG VIAL IVPB SCH (21:02)
[2023-04-27] VITALS (13 sets, daily range): BP systolic 81–136; BP diastolic 32–77; PULSE 70–83; RESP 14–20; O2SAT 97–99
[2023-04-27] MEDS ORDERED: 0.9% NACL 250ML 250 ML IV SCH (05:00)
[2023-04-27 06:22] LABS: HEMATOCRIT 31.6 % (36-48); MEAN CORPUSCULAR HEMOGLOBIN 29.9 pg (27.0-33.0); MEAN CORPUSCULAR VOLUME 93.5 fL (79-99); RED BLOOD CELL COUNT(AUTO) 3.38 MIL/uL (4.00-5.50); RED CELL DISTRIBUTION WIDTH 13.3 % (11.0-15.5); WHITE BLOOD COUNT (AUTO) 9.2 K/uL (4.8-10.8)
[2023-04-27] MEDS: LEVOTHYROXINE 75 MCG TABLET PO SCH (06:30)
[2023-04-27] MEDS: LEVOTHYROXINE 100 MCG TABLET PO SCH (06:30)
[2023-04-27] MEDS: IPRATROPIUM/ALBUTEROL SULFATE 3 ML SOLUTION IH SCH ×4 (06:35→23:30)
[2023-04-27 06:38] LABS: ALBUMIN 2.9 g/dL (3.5-5.0); BILIRUBIN,TOTAL 0.5 mg/dL (0.2-1.0); MAGNESIUM 1.9 mg/dL (1.80-2.40); POTASSIUM 3.7 mmol/L (3.5-5.1); TOTAL PROTEIN, SERUM 7.2 g/dL (6.0-8.3)
[2023-04-27 07:00] LABS: CREATININE 7.5 mg/dL (0.5-1.5)
[2023-04-27] MEDS: INSULIN LISPRO 100 UNIT/ML 3ML SQ SCH ×3 (07:30→16:55)
[2023-04-27] MEDS: RANOLAZINE 500 MG TAB.SR.12H PO SCH ×2 (08:07→21:30)
[2023-04-27] MEDS: PANTOPRAZOLE 40 MG TAB DR PO SCH (08:07)
[2023-04-27] MEDS: METOPROLOL SUCCINATE 50 MG TAB.SR.24H PO SCH (08:08)
[2023-04-27] MEDS: CLOPIDOGREL 75MG TAB PO SCH (08:09)
[2023-04-27] MEDS: ASPIRIN 81MG CHEW TAB PO SCH (08:09)
[2023-04-27] MEDS: FLUDROCORTISONE ACETATE 0.1 MG TABLET PO SCH ×2 (08:10→08:13)
[2023-04-27] MEDS: 0.9%NACL 10ML VIAL IV SCH ×2 (08:14→21:28)
[2023-04-27] MEDS: ZOSYN 3.375GM+NS 50ML 50 ML IVPB SCH ×2 (08:19→21:29)
[2023-04-27] MEDS: MIDODRINE HCL 5 MG TABLET PO SCH ×3 (08:19→21:30)
[2023-04-27] MEDS: HEPARIN 5,000 UNIT VIAL SQ SCH ×2 (08:29→21:28)
[2023-04-27] MEDS: ATORVASTATIN 40 MG TABLET PO SCH (21:29)
[2023-04-28] VITALS (25 sets, daily range): BP systolic 85–139; BP diastolic 30–63; PULSE 62–78; RESP 14–22; TEMP 98–98.1; O2SAT 97–100
[2023-04-28 05:57] LABS: HEMATOCRIT 34.2 % (36-48); MEAN CORPUSCULAR HEMOGLOBIN 29.5 pg (27.0-33.0); MEAN CORPUSCULAR HGB CONC 32.2 g/dL (32.0-36.0); MEAN CORPUSCULAR VOLUME 91.7 fL (79-99); RED BLOOD CELL COUNT(AUTO) 3.73 MIL/uL (4.00-5.50); RED CELL DISTRIBUTION WIDTH 13.3 % (11.0-15.5); WHITE BLOOD COUNT (AUTO) 11.3 K/uL (4.8-10.8)
[2023-04-28 06:07] LABS: ALBUMIN 3.1 g/dL (3.5-5.0)
[2023-04-28] MEDS: LEVOTHYROXINE 75 MCG TABLET PO SCH (06:09)
[2023-04-28] MEDS: LEVOTHYROXINE 100 MCG TABLET PO SCH (06:09)
[2023-04-28 06:11] LABS: BILIRUBIN,TOTAL 0.5 mg/dL (0.2-1.0); TOTAL PROTEIN, SERUM 7.8 g/dL (6.0-8.3)
[2023-04-28 06:18] LABS: CREATININE 9.5 mg/dL (0.5-1.5)
[2023-04-28] MEDS: IPRATROPIUM/ALBUTEROL SULFATE 3 ML SOLUTION IH SCH ×3 (06:39→19:43)
[2023-04-28] MEDS: INSULIN LISPRO 100 UNIT/ML 3ML SQ SCH ×3 (07:30→16:53)
[2023-04-28] MEDS: METOPROLOL SUCCINATE 50 MG TAB.SR.24H PO SCH (09:00)
[2023-04-28] MEDS: 0.9%NACL 10ML VIAL IV SCH ×2 (09:02→20:17)
[2023-04-28] MEDS: ZOSYN 3.375GM+NS 50ML 50 ML IVPB SCH ×2 (09:02→20:17)
[2023-04-28] MEDS: MIDODRINE HCL 5 MG TABLET PO SCH ×3 (09:02→19:59)
[2023-04-28] MEDS: RANOLAZINE 500 MG TAB.SR.12H PO SCH ×2 (09:02→19:59)
[2023-04-28] MEDS: PANTOPRAZOLE 40 MG TAB DR PO SCH (09:02)
[2023-04-28] MEDS: FLUDROCORTISONE ACETATE 0.1 MG TABLET PO SCH ×2 (09:02→09:30)
[2023-04-28] MEDS: ASPIRIN 81MG CHEW TAB PO SCH (16:08)
[2023-04-28] MEDS: HEPARIN 5,000 UNIT VIAL SQ SCH ×2 (16:09→20:17)
[2023-04-28] MEDS: CLOPIDOGREL 75MG TAB PO SCH (16:09)
[2023-04-28] MEDS: ACETAMINOPHEN 325 MG TAB PO PRN (16:15)
[2023-04-28] MEDS ORDERED: NYSTATIN 30 GM CREAM.GM. TP PRN (19:00)
[2023-04-28] MEDS: ATORVASTATIN 40 MG TABLET PO SCH (19:59)
[2023-04-28] MEDS: VANCOMYCIN 750MG VIAL IVPB SCH (20:17)
[2023-04-29] VITALS (11 sets, daily range): BP systolic 89–122; BP diastolic 32–59; PULSE 64–82; RESP 18–20; O2SAT 97–98
[2023-04-29] MEDS: IPRATROPIUM/ALBUTEROL SULFATE 3 ML SOLUTION IH SCH ×5 (01:12→23:20)
[2023-04-29 05:42] LABS: HEMATOCRIT 31.7 % (36-48); MEAN CORPUSCULAR HEMOGLOBIN 29.9 pg (27.0-33.0); MEAN CORPUSCULAR HGB CONC 32.5 g/dL (32.0-36.0); MEAN CORPUSCULAR VOLUME 91.9 fL (79-99); RED BLOOD CELL COUNT(AUTO) 3.45 MIL/uL (4.00-5.50); RED CELL DISTRIBUTION WIDTH 13.2 % (11.0-15.5); WHITE BLOOD COUNT (AUTO) 9.3 K/uL (4.8-10.8)
[2023-04-29 06:02] LABS: ALBUMIN 2.9 g/dL (3.5-5.0); BILIRUBIN,TOTAL 0.6 mg/dL (0.2-1.0); CREATININE 7.4 mg/dL (0.5-1.5); MAGNESIUM 1.9 mg/dL (1.80-2.40); POTASSIUM 3.8 mmol/L (3.5-5.1); TOTAL PROTEIN, SERUM 7.4 g/dL (6.0-8.3)
[2023-04-29] MEDS: LEVOTHYROXINE 75 MCG TABLET PO SCH (06:15)
[2023-04-29] MEDS: LEVOTHYROXINE 100 MCG TABLET PO SCH (06:15)
[2023-04-29] MEDS: INSULIN LISPRO 100 UNIT/ML 3ML SQ SCH ×3 (07:30→15:56)
[2023-04-29] MEDS: METOPROLOL SUCCINATE 50 MG TAB.SR.24H PO SCH (09:00)
[2023-04-29] MEDS: 0.9%NACL 10ML VIAL IV SCH ×2 (09:13→20:58)
[2023-04-29] MEDS: ZOSYN 3.375GM+NS 50ML 50 ML IVPB SCH ×2 (09:13→20:59)
[2023-04-29] MEDS: CLOPIDOGREL 75MG TAB PO SCH (09:14)
[2023-04-29] MEDS: RANOLAZINE 500 MG TAB.SR.12H PO SCH ×2 (09:14→21:00)
[2023-04-29] MEDS: MIDODRINE HCL 5 MG TABLET PO SCH ×3 (09:14→21:03)
[2023-04-29] MEDS: ASPIRIN 81MG CHEW TAB PO SCH (09:14)
[2023-04-29] MEDS: PANTOPRAZOLE 40 MG TAB DR PO SCH (09:14)
[2023-04-29] MEDS: FLUDROCORTISONE ACETATE 0.1 MG TABLET PO SCH ×2 (09:15)
[2023-04-29] MEDS: HEPARIN 5,000 UNIT VIAL SQ SCH ×2 (09:15→21:01)
[2023-04-29] MEDS ORDERED: LORAZEPAM 0.5 MG TABLET PO SCH (21:00)
[2023-04-29] MEDS: ATORVASTATIN 40 MG TABLET PO SCH (21:03)
[2023-04-30] VITALS (11 sets, daily range): BP systolic 98–136; BP diastolic 31–72; PULSE 64–78; RESP 17–19; O2SAT 99–100
[2023-04-30 05:46] LABS: ALBUMIN 3.1 g/dL (3.5-5.0); BILIRUBIN,TOTAL 0.4 mg/dL (0.2-1.0); TOTAL PROTEIN, SERUM 7.7 g/dL (6.0-8.3)
[2023-04-30 05:48] LABS: CREATININE 9.5 mg/dL (0.5-1.5)
[2023-04-30] MEDS: LEVOTHYROXINE 75 MCG TABLET PO SCH (06:32)
[2023-04-30] MEDS: LEVOTHYROXINE 100 MCG TABLET PO SCH (06:32)
[2023-04-30] MEDS: INSULIN LISPRO 100 UNIT/ML 3ML SQ SCH ×3 (06:32→17:00)
[2023-04-30] MEDS: IPRATROPIUM/ALBUTEROL SULFATE 3 ML SOLUTION IH SCH ×4 (06:44→23:29)
[2023-04-30] MEDS: METOPROLOL SUCCINATE 50 MG TAB.SR.24H PO SCH (09:00)
[2023-04-30] MEDS: ZOSYN 3.375GM+NS 50ML 50 ML IVPB SCH ×2 (09:28→21:06)
[2023-04-30] MEDS: 0.9%NACL 10ML VIAL IV SCH ×2 (09:28→21:06)
[2023-04-30] MEDS: ASPIRIN 81MG CHEW TAB PO SCH (09:29)
[2023-04-30] MEDS: CLOPIDOGREL 75MG TAB PO SCH (09:29)
[2023-04-30] MEDS: PANTOPRAZOLE 40 MG TAB DR PO SCH (09:29)
[2023-04-30] MEDS: FLUDROCORTISONE ACETATE 0.1 MG TABLET PO SCH ×2 (09:29→09:30)
[2023-04-30] MEDS: MIDODRINE HCL 5 MG TABLET PO SCH ×3 (09:29→21:07)
[2023-04-30] MEDS: RANOLAZINE 500 MG TAB.SR.12H PO SCH ×2 (09:30→21:07)
[2023-04-30] MEDS: HEPARIN 5,000 UNIT VIAL SQ SCH ×2 (09:33→21:09)
[2023-04-30] MEDS ORDERED: ALTEPLASE 2MG VIAL 2 MG/VIAL VIAL IVCATH ONE (11:00)
[2023-04-30] MEDS: ATORVASTATIN 40 MG TABLET PO SCH (21:06)
[2023-05-01] VITALS (23 sets, daily range): BP systolic 102–124; BP diastolic 35–66; PULSE 68–79; RESP 16–18; TEMP 98–98.2; O2SAT 97–100
[2023-05-01] MEDS: LEVOTHYROXINE 100 MCG TABLET PO SCH (06:30)
[2023-05-01] MEDS: LEVOTHYROXINE 75 MCG TABLET PO SCH (06:30)
[2023-05-01] MEDS: INSULIN LISPRO 100 UNIT/ML 3ML SQ SCH ×3 (07:30→17:00)
[2023-05-01] MEDS: HEPARIN 5,000 UNIT VIAL SQ SCH (09:00)
[2023-05-01] MEDS: ASPIRIN 81MG CHEW TAB PO SCH (09:00)
[2023-05-01] MEDS: FLUDROCORTISONE ACETATE 0.1 MG TABLET PO SCH ×2 (09:00→09:30)
[2023-05-01] MEDS: ZOSYN 3.375GM+NS 50ML 50 ML IVPB SCH (09:00)
[2023-05-01] MEDS: METOPROLOL SUCCINATE 50 MG TAB.SR.24H PO SCH (09:00)
[2023-05-01] MEDS: MIDODRINE HCL 5 MG TABLET PO SCH ×2 (09:00→12:52)
[2023-05-01] MEDS: RANOLAZINE 500 MG TAB.SR.12H PO SCH (09:00)
[2023-05-01] MEDS: PANTOPRAZOLE 40 MG TAB DR PO SCH (09:00)
[2023-05-01] MEDS: CLOPIDOGREL 75MG TAB PO SCH (09:00)
[2023-05-01] MEDS: 0.9%NACL 10ML VIAL IV SCH (09:00)
[2023-05-01] MEDS: IPRATROPIUM/ALBUTEROL SULFATE 3 ML SOLUTION IH SCH ×2 (11:39→18:53)
[2023-05-01] MEDS: ACETAMINOPHEN 325 MG TAB PO PRN (12:55)
== END 2023-05-01 19:20 | DRG 871 ==
LOC: EDH 16:08 → EDHIP 22:39 → 2BH 04-18 15:45 → 3CH 04-20 13:45
PROVIDERS: ADMIT Internal Medicine; ATTEND Internal Medicine
PROC: 4A023N7 Measurement of Cardiac Sampling and Pressure, Left Heart, Percutaneous Approach (ICD-10-PCS; principal; 2023-04-17)
PROC: B2151ZZ Fluoroscopy of Left Heart using Low Osmolar Contrast (ICD-10-PCS; 2023-04-17)
PROC: B2111ZZ Fluoroscopy of Multiple Coronary Arteries using Low Osmolar Contrast (ICD-10-PCS; 2023-04-17)
PROC: B2131ZZ Fluoroscopy of Multiple Coronary Artery Bypass Grafts using Low Osmolar Contrast (ICD-10-PCS; 2023-04-17)
PROC: 5A1D70Z Performance of Urinary Filtration, Intermittent, Less than 6 Hours Per Day (ICD-10-PCS; 2023-04-17)
PROC: 5A1D70Z Performance of Urinary Filtration, Intermittent, Less than 6 Hours Per Day (ICD-10-PCS; 2023-04-19)
PROC: 5A1D70Z Performance of Urinary Filtration, Intermittent, Less than 6 Hours Per Day (ICD-10-PCS; 2023-04-21)
PROC: 5A1D70Z Performance of Urinary Filtration, Intermittent, Less than 6 Hours Per Day (ICD-10-PCS; 2023-04-24)
PROC: 5A1D70Z Performance of Urinary Filtration, Intermittent, Less than 6 Hours Per Day (ICD-10-PCS; 2023-04-26)
PROC: 5A1D70Z Performance of Urinary Filtration, Intermittent, Less than 6 Hours Per Day (ICD-10-PCS; 2023-04-28)
PROC: 5A1D70Z Performance of Urinary Filtration, Intermittent, Less than 6 Hours Per Day (ICD-10-PCS; 2023-05-01)
DX: A41.9 Sepsis, unspecified organism (principal); I21.4 Non-ST elevation (NSTEMI) myocardial infarction; I50.23 Acute on chronic systolic (congestive) heart failure; J18.9 Pneumonia, unspecified organism; R65.21 Severe sepsis with septic shock; N18.6 End stage renal disease; J96.21 Acute and chronic respiratory failure with hypoxia; J44.0 Chronic obstructive pulmonary disease with (acute) lower respiratory infection; D84.9 Immunodeficiency, unspecified; I13.2 Hypertensive heart and chronic kidney disease with heart failure and with stage 5 chronic kidney disease, or end stage renal disease; I25.110 Atherosclerotic heart disease of native coronary artery with unstable angina pectoris; I42.9 Cardiomyopathy, unspecified; J98.11 Atelectasis; Z68.41 Body mass index [BMI] 40.0-44.9, adult; Z20.822 Contact with and (suspected) exposure to COVID-19; E11.22 Type 2 diabetes mellitus with diabetic chronic kidney disease; E11.65 Type 2 diabetes mellitus with hyperglycemia; D64.9 Anemia, unspecified; E03.9 Hypothyroidism, unspecified; E11.40 Type 2 diabetes mellitus with diabetic neuropathy, unspecified; E11.51 Type 2 diabetes mellitus with diabetic peripheral angiopathy without gangrene; E66.01 Morbid (severe) obesity due to excess calories; E78.2 Mixed hyperlipidemia; F02.80 Dementia in other diseases classified elsewhere, unspecified severity, without behavioral disturbance, psychotic disturbance, mood disturbance, and anxiety; G30.9 Alzheimer's disease, unspecified; G47.33 Obstructive sleep apnea (adult) (pediatric); H54.62 Unqualified visual loss, left eye, normal vision right eye; I87.2 Venous insufficiency (chronic) (peripheral); Z66 Do not resuscitate; I25.2 Old myocardial infarction; Z99.2 Dependence on renal dialysis; Z79.4 Long term (current) use of insulin; Z79.82 Long term (current) use of aspirin; Z82.49 Family history of ischemic heart disease and other diseases of the circulatory system; Z83.3 Family history of diabetes mellitus; Z87.01 Personal history of pneumonia (recurrent); Z95.1 Presence of aortocoronary bypass graft; Z91.041 Radiographic dye allergy status; Z88.8 Allergy status to other drugs, medicaments and biological substances; Z91.018 Allergy to other foods; Z88.5 Allergy status to narcotic agent
CPT/HCPCS: 36415; 36569; 36600; 71045; 71250; 74230; 80053; 80202; 82306; 82533; 82550; 82803; 82948; 83036; 83605; 83735; 83874; 83880; 84100; 84145; 84439; 84443; 84484; 85025; 85027; 85610; 85730; 86704; 86706; 87040; 87340; 87635; 87804; 90935; 92610; 92611; 93005; 93306; 93356; 93459; 94640; 94664; 97039; 99156; 99157; C1760; C1769; C1894; G0378; J1644; J1815; J2250; J2543; J2997; J3010; J3370; J3490; Q9967; 3370

== ENCOUNTER 2023-05-09 17:43 | Emergency (ER) | payer MEDICARE ==
[~2023-05-09] VITALS: Ht 170.2 cm; Wt 99.8 kg
[2023-05-09 19:20] LABS: ALBUMIN 3.5 g/dL (3.5-5.0); BASOPHILS # (AUTO) 0.09 K/uL (0.00-0.20); BASOPHILS % (AUTO) 0.7 % (0.0-5.0); BILIRUBIN,TOTAL 0.6 mg/dL (0.2-1.0); CREATININE 7.4 mg/dL (0.5-1.5); EOSINOPHILS # (AUTO) 0.67 K/uL (0.00-0.70); EOSINOPHILS % (AUTO) 5.5 % (0.0-8.0); HEMATOCRIT 34.5 % (36-48); IMMATURE GRANULOCYTE ABSOLUTE 0.04 K/uL (0-1); LYMPHOCYTES # (AUTO) 2.7 K/uL (1.0-4.8); LYMPHOCYTES % (AUTO) 22.3 % (21.0-51.0); MEAN CORPUSCULAR HEMOGLOBIN 29.5 pg (27.0-33.0); MEAN CORPUSCULAR HGB CONC 31.3 g/dL (32.0-36.0); MEAN CORPUSCULAR VOLUME 94.3 fL (79-99); MONOCYTES # (AUTO) 1.1 K/uL (0.1-1.0); MONOCYTES % (AUTO) 8.8 % (3.0-13.0); NEUTROPHILS # (AUTO) 7.7 K/uL (1.8-7.7); NEUTROPHILS % (AUTO) 62.4 % (40.0-77.0); PLATELET COUNT (AUTO) 261 K/uL (130-400); POTASSIUM 3.5 mmol/L (3.5-5.1); RED BLOOD CELL COUNT(AUTO) 3.66 MIL/uL (4.00-5.50); RED CELL DISTRIBUTION WIDTH 13.6 % (11.0-15.5); TOTAL PROTEIN, SERUM 8.1 g/dL (6.0-8.3); WHITE BLOOD COUNT (AUTO) 12.3 K/uL (4.8-10.8)
[2023-05-09 19:49] VITALS: BP 110/43; PULSE 67; RESP 18; O2SAT 98
[2023-05-09 19:56] LABS: INR 0.95 (0.85-1.15); PROTHROMBIN TIME 11.1 SEC (9.6-11.6)
[2023-05-09 19:57] LABS: PARTIAL THROMBOPLASTIN TIME 29.6 SEC (26.3-35.5)
[2023-05-09] MEDS ORDERED: DEXTROSE 50%-WATER 50 ML DISP.SYRIN IV ONE ×2 (21:00)
[2023-05-09] MEDS ORDERED: LEVO-70 PO (22:38)
[2023-05-09] MEDS ORDERED: LEVOFLOXACIN 500 MG TABLET PO ONE (23:00)
== END 2023-05-09 23:58 | disposition home or self-care (01) ==
LOC: EDH 17:43
DX: I12.0 Hypertensive chronic kidney disease with stage 5 chronic kidney disease or end stage renal disease (principal); E11.22 Type 2 diabetes mellitus with diabetic chronic kidney disease; N18.6 End stage renal disease; J18.9 Pneumonia, unspecified organism; E78.00 Pure hypercholesterolemia, unspecified; I25.2 Old myocardial infarction; Z79.02 Long term (current) use of antithrombotics/antiplatelets; Z79.4 Long term (current) use of insulin; Z79.621 Long term (current) use of calcineurin inhibitor; Z79.82 Long term (current) use of aspirin; Z79.899 Other long term (current) drug therapy; Z86.73 Personal history of transient ischemic attack (TIA), and cerebral infarction without residual deficits; Z88.5 Allergy status to narcotic agent; Z88.8 Allergy status to other drugs, medicaments and biological substances; Z99.2 Dependence on renal dialysis
CPT/HCPCS: 36415; 71045; 71250; 80053; 82948; 83605; 85025; 85610; 85730; J7070

== ENCOUNTER 2023-07-27 06:04 | Day surgery (SDC) | payer MEDICARE ==
[2023-07-25 14:16] LABS: BASOPHILS # (AUTO) 0.07 K/uL (0.00-0.20); BASOPHILS % (AUTO) 0.8 % (0.0-5.0); EOSINOPHILS # (AUTO) 0.46 K/uL (0.00-0.70); EOSINOPHILS % (AUTO) 4.9 % (0.0-8.0); HEMATOCRIT 40.2 % (36-48); IMMATURE GRANULOCYTE ABSOLUTE 0.02 K/uL (0-1); LYMPHOCYTES # (AUTO) 1.6 K/uL (1.0-4.8); LYMPHOCYTES % (AUTO) 16.9 % (21.0-51.0); MEAN CORPUSCULAR HEMOGLOBIN 28.9 pg (27.0-33.0); MEAN CORPUSCULAR HGB CONC 32.1 g/dL (32.0-36.0); MEAN CORPUSCULAR VOLUME 89.9 fL (79-99); MONOCYTES # (AUTO) 0.7 K/uL (0.1-1.0); MONOCYTES % (AUTO) 7.5 % (3.0-13.0); NEUTROPHILS # (AUTO) 6.5 K/uL (1.8-7.7); NEUTROPHILS % (AUTO) 69.7 % (40.0-77.0); PLATELET COUNT (AUTO) 186 K/uL (130-400); RED BLOOD CELL COUNT(AUTO) 4.47 MIL/uL (4.00-5.50); RED CELL DISTRIBUTION WIDTH 14.2 % (11.0-15.5); WHITE BLOOD COUNT (AUTO) 9.3 K/uL (4.8-10.8)
[2023-07-25 14:25] LABS: CREATININE 6.3 mg/dL (0.5-1.5); POTASSIUM 3.9 mmol/L (3.5-5.1)
[2023-07-25 14:29] LABS: INR 0.94 (0.85-1.15)
[2023-07-25 14:30] LABS: PARTIAL THROMBOPLASTIN TIME 30.5 SEC (26.3-35.5)
[2023-07-25 14:33] VITALS: BP 90/37; PULSE 75; RESP 14
[2023-07-27] VITALS (16 sets, daily range): BP systolic 80–123; BP diastolic 31–58; PULSE 63–78; RESP 14–20
[~2023-07-27] VITALS: Ht 167.6 cm; Wt 111.9 kg
[~2023-07-27 06:04] MED LIST changes: -ALBU18HF7 IH; -FLUT1BLS15 IH
[2023-07-27] MEDS ORDERED: 0.9% NACL 500ML IV.SOLN 500 ML IV ONE (07:04)
[2023-07-27] MEDS ORDERED: LIDOCAINE HCL 2% VISCOUS 15 ML UDCUP ONE (07:04)
[2023-07-27] MEDS ORDERED: FENTANYL CITRATE PF 50 MCG/1 ML 2ML VIAL ONE (07:23)
[2023-07-27] MEDS ORDERED: MIDAZOLAM HCL 1 MG/ML 2ML VIAL ONE (07:23)
[2023-07-27] MEDS ORDERED: FLUMAZENIL 0.1MG/1ML 5ML VIAL IV ONE (07:24)
[2023-07-27] MEDS ORDERED: NALOXONE HCL 0.4 MG/1 ML ML ONE (07:24)
== END 2023-07-27 11:05 | disposition home or self-care (01) ==
LOC: DAH 06:04
PROVIDERS: ATTEND Internal Medicine Cardiovascular Disease
DX: I37.1 Nonrheumatic pulmonary valve insufficiency (principal); I25.118 Atherosclerotic heart disease of native coronary artery with other forms of angina pectoris; I13.11 Hypertensive heart and chronic kidney disease without heart failure, with stage 5 chronic kidney disease, or end stage renal disease; E11.22 Type 2 diabetes mellitus with diabetic chronic kidney disease; N18.6 End stage renal disease; E78.49 Other hyperlipidemia; E66.9 Obesity, unspecified; Z79.01 Long term (current) use of anticoagulants; Z79.899 Other long term (current) drug therapy; Z99.2 Dependence on renal dialysis; Z86.16 Personal history of COVID-19; Z95.0 Presence of cardiac pacemaker; Z68.39 Body mass index [BMI] 39.0-39.9, adult
CPT/HCPCS: 80048; 85025; 85610; 85730; 36415; 93005; 82948; 93325; 93312; J7040; J2250; A4615; A4215; A4223 ×3; A4657; A7002; A4222; A4221; A4663; A4216; A4606; 99152; J2310; J3010; J3490; G0500